=== PATIENT | male | born 1985 ===

== ENCOUNTER 2023-08-15 09:38 | Inpatient (IN) | payer OTHER ==
--- OUTSIDE RECORDS SUMMARY | 2023-08-15 09:43 | XMS REPORT | Continuity of Care Document ---
Author Name Unknown Address [address] [facility] [address] [place] [address] [facility] thconnect Address [address] [facility] [address] [place] [address] Care Team Providers Care Senior Database Programmer Name Role Phone [facility] Physician Jenelle Lo Attending Clinician Unavailable Elen Marley Attending Clinician Unavailable DEEDEE FIELD Attending Clinician UnavailDEEDEE Huddleston Attending Clinician UnavailVLAD Rees Attending Clinician UnavailVLAD Varma Attending Clinician UnavailGama Soliz Attending Clinician [phone] GAMA ACUÑA Attending Clinician Unavailable Michelle Erazo MD Attending Clinician [phone] Pob, [facility] Main Attending Clinician UnavailMICHELLE Cottrell Attending Clinician Unavailmartha shukla Doctor Unassigned, Sledge Attending Clinician U Deedee Wall MD Attending Clinician PHIL LITTLE Attending Clinician Unavailable GRAYSON SIMON Attending Clinician Unavail able Grayson Simon MD Attending Clinician Rylan Gonzales MD Attending Clinician [phone] Pcp-Lab Attending Clinician Unavailable RYLAN DANIELLE Attending Clinician Unavailable LILLIAN GRAY Attending Clinician Unavailab GRAYSON Reyna Admitting Clinician Unavail able Payers Payer Name Policy Type Policy Number Effective Date Expirati on Date Source [facility] [id number] 00:00:00 [facility] [id number] 2015 00:00:00 Problems Condition Name Condition Details Condition Category Status Onset Date Resolution Date Last Treatment Date Treating Clinician Comments Source ADHD (attention deficit hyperactiv ity disorder), combined type ADHD (attention deficit hyperactiv ity disorder), combined type Disease Active 11-05 00:00: 00 [facility] Bipolar I disorder, current or most recent episode depressed, in partial remission Bipolar I disorder, current or most recent episode depressed, in partial remission Disease Active 11-05 00:00: 00 [facility] Autism spectrum disorder Autism spectrum disorder Disease Active 11-05 00:00: 00 [facility] 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 current use of antipsycho tic medication Disease Active 11-05 00:00: 00 [facility] Elevated BP without diagnosis of hypertensi on Elevated BP without diagnosis of hypertensi on Problem Active [facility] Bipolar disorder Bipolar disorder Problem Active [facility] Seasonal allergies Seasonal allergies Problem Active [facility] Depression Depression Problem Active [facility] ADHD (attention deficit hyperactiv ity disorder) ADHD (attention deficit hyperactiv ity disorder) Diagnosis Active [facility] Snoring Snoring Problem Active [facility] Calcium oxalate crystals in urine Calcium oxalate crystals in urine Problem Active [facility] Hyperglyce krystyna Hyperglyce krystyna Problem Active [facility] Morbid obesity Morbid obesity Problem Active [facility] Shortness of breath Shortness of breath Problem Active [facility] Body mass index (BMI) 40.0-44.9, adult Body mass index (BMI) 40.0-44.9, adult Problem Active [facility] HDL deficiency HDL deficiency Diagnosis Active [facility] Hypertrigl yceridemia Hypertrigl yceridemia Diagnosis Active [facility] Chest tightness Chest tightness Problem Active [facility] Prediabete s Prediabete s Diagnosis Active [facility] Autism Autism Diagnosis Active [facility] Allergies, Adverse Reactions, Alerts Allergy Name Allergy Type Status Severity Reaction(s) Onset Date Inactive Date Treating Clinician Comments Source Lorat[place] ne Drug Allergy Active Hypertension 08-23 00:00: 00 Per patient chest pains [facility] [place]at[place] ne Propensi ty to adverse reaction s to drug Active Palpitations 08-23 00:00: 00 Per patient chest pains [facility] LORATADI NE DRUG INGREDI Active High Palpitations 08-23 00:00: 00 [facility] Claritin Adverse Reaction Active chest pain [facility] Social History Social Habit Start Date Stop Date Quantity Comments Source Gender identity [facility] Sexual orientation [facility] Alcohol intake 2023-06-14 00:00:00 2023-06-14 00:00:00 [facility] History of Social function 2023-06-14 00:00:00 2023-06-14 00:00:00 [facility] Exposure to SARS-CoV-2 (event) 2022-05-20 00:00:00 2022-05-30 10:14:00 Not sure [facility] Tobacco use and exposure 2013-06-24 00:00:00 2013-06-24 00:00:00 Smokeless tobacco non-user [facility] Sex Assigned At 1985 00:00:00 1985 00:00:00 [facility] Smoking Status Start Date Stop Date Source Never smoked tobacco [facility] Medications Ordered Medication Name Filled Medication Name Start Date Stop Date Current Medication? Ordering Clinician Indication Dosage Frequency Signature (SIG) Comments Components Source amphetamine -dextroamph etamine (ADDERALL XR) 25 mg 24 hr capsule 07-24 00:00: 00 Yes [id number] 50mg Take 2 capsules by mouth every morning. [facility] amphetamine -dextroamph etamine (ADDERALL XR) 25 mg 24 hr capsule 06-24 00:00: 00 Yes [id number] 50mg Take 2 capsules by mouth every morning. [facility] lurasidone 40 mg tablet 3 00:00: 00 Yes [id number] 40mg Take 1 tablet by mouth every morning. [facility] SERTraline 100 mg tablet 06-13 00:00: 00 Yes [id number] 150mg Take 1.5 tablets by mouth in the morning. [facility] amphetamine -dextroamph etamine (ADDERALL XR) 25 mg 24 hr capsule 05-22 00:00: 00 06-13 00:00 :00 No [id number] 50mg Take 2 capsules by mouth every morning. [facility] amphetamine -dextroamph etamine (ADDERALL XR) 25 mg 24 hr capsule 04-22 00:00: 00 05-22 00:00 :00 No [id number] 50mg Take 2 capsules by mouth every morning. [facility] amphetamine -dextroamph etamine (ADDERALL XR) 25 mg 24 hr capsule 2022-03 2- 00:00: 00 04-21 00:00 :00 No [id number] 50mg Take 2 capsules by mouth every morning. [facility] ampicillin 500 mg capsule 2022-03 2- 00:00: 00 Yes [facility] lurasidone 40 mg tablet 2022-03 2- 00:00: 00 06-13 00:00 :00 No [id number] 40mg Take 1 tablet by mouth every morning. [facility] SERTraline 100 mg tablet 2022-03 2- 00:00: 00 06-13 00:00 :00 No [id number] 150mg Take 1.5 tablets by mouth in the morning. [facility] losartan 25 mg tablet 2022-03 2- 00:00: 00 Yes [facility] amphetamine -dextroamph etamine (ADDERALL XR) 25 mg 24 hr capsule 2022-03 1- 00:00: 00 03-01 00:00 :00 No [id number] 50mg Take 2 capsules by mouth every morning. [facility] lurasidone 40 mg tablet 2022-03 0-31 00:00: 00 03-01 00:00 :00 No [id number] 40mg Take 1 tablet by mouth every morning. [facility] amphetamine -dextroamph etamine (ADDERALL XR) 25 mg 24 hr capsule 2022-03 0-31 00:00: 00 02-20 00:00 :00 No [id number] 50mg Take 2 capsules by mouth every morning. [facility] amphetamine -dextroamph etamine (ADDERALL XR) 25 mg 24 hr capsule 0 9-28 00:00: 00 01-24 00:00 :00 No [id number] 50mg Take 2 capsules by mouth every morning. [facility] SERTraline 100 mg tablet 9-06 00:00: 00 03-01 00:00 :00 No [id number] 150mg Take 1.5 tablets by mouth in the morning. [facility] lurasidone 40 mg tablet 9- 00:00: 00 01-24 00:00 :00 No [id number] 40mg Take 1 tablet by mouth every morning. [facility] amphetamine -dextroamph etamine (ADDERALL XR) 25 mg 24 hr capsule 8-30 00:00: 00 12-19 00:00 :00 No [id number] 50mg Take 2 capsules by mouth every morning. [facility] lurasidone 40 mg tablet 8-30 00:00: 00 11-30 00:00 :00 No [id number] 40mg Take 1 tablet by mouth every morning. [facility] SERTraline 100 mg tablet 0 8- 00:00: 00 11-30 00:00 :00 No [id number] 150mg Take 1.5 tablets by mouth in the morning. [facility] amphetamine -dextroamph etamine (ADDERALL XR) 25 mg 24 hr capsule 0 7-26 00:00: 00 11-23 00:00 :00 No [id number] 50mg Take 2 capsules by mouth every morning. [facility] amphetamine -dextroamph etamine (ADDERALL XR) 25 mg 24 hr capsule 2022-0 6-27 00:00: 00 10-19 00:00 :00 No [id number] 50mg Take 2 capsules by mouth every morning. [facility] lurasidone 40 mg tablet 0 6-05 00:00: 00 11-23 00:00 :00 No [id number] 40mg Take 1 tablet by mouth every morning. [facility] SERTraline 100 mg tablet 0 6-05 00:00: 00 10-25 00:00 :00 No [id number] 150mg Take 1.5 tablets by mouth in the morning. [facility] amphetamine -dextroamph etamine (ADDERALL XR) 25 mg 24 hr capsule 0 5-22 00:00: 00 08-29 00:00 :00 No [id number] 50mg Take 2 capsules by mouth every morning. [facility] amphetamine -dextroamph etamine (ADDERALL XR) 25 mg 24 hr capsule 2022-0 4-24 00:00: 00 08-15 00:00 :00 No [id number] 50mg Take 2 capsules by mouth every morning. [facility] amphetamine -dextroamph etamine 25 mg 24 hr capsule 2022-0 3-23 00:00: 00 07-18 00:00 :00 No [id number] 50mg Take 2 capsules by mouth in the morning. [facility] ADDERALL XR 25 mg 24 hr capsule 2022-0 3-23 00:00: 00 07-18 00:00 :00 No [id number] 50mg Take 2 capsules by mouth every morning. [facility] lurasidone 40 mg tablet 2022-0 3-06 00:00: 00 08-29 00:00 :00 No [id number] 40mg Take 1 tablet by mouth every morning. [facility] SERTraline 100 mg tablet 2022-0 3-06 00:00: 00 08-29 00:00 :00 No [id number] 150mg Take 1.5 tablets by mouth in the morning. [facility] amphetamine -dextroamph etamine 25 mg 24 hr capsule 3-06 00:00: 00 06-16 00:00 :00 No [id number] 50mg Take 2 capsules by mouth in the morning. [facility] amphetamine -dextroamph etamine 25 mg 24 hr capsule 2-15 00:00: 00 05-30 00:00 :00 No [id number] 50mg Take 2 capsules by mouth in the morning. [facility] amphetamine -dextroamph etamine 25 mg 24 hr capsule 1-18 00:00: 00 05-11 00:00 :00 No [id number] 50mg Take 2 capsules by mouth in the morning. [facility] amphetamine -dextroamph etamine 25 mg 24 hr capsule 2021-03 2-15 00:00: 00 04-13 00:00 :00 No [id number] 50mg Take 2 capsules by mouth in the morning. [facility] amphetamine -dextroamph etamine 25 mg 24 hr capsule 2021-03 1- 00:00: 00 03-09 00:00 :00 No [id number] 50mg Take 2 capsules by mouth in the morning. [facility] metFORMIN 500 mg tablet 2021-03 10:32: 57 Yes 500mg Take 500 mg by mouth in the morning and 500 mg in the evening. Take with meals. [facility] lurasidone 40 mg tablet 2021-03 00:00: 00 05-30 00:00 :00 No [id number] 40mg Take 1 tablet by mouth every morning. [facility] SERTraline 100 mg tablet 2021-03 00:00: 00 05-30 00:00 :00 No [id number] 150mg Take 1.5 tablets by mouth in the morning. [facility] amphetamine -dextroamph etamine 25 mg 24 hr capsule 2021-03 0-14 00:00: 00 02-02 00:00 :00 No [id number] 50mg Take 2 capsules by mouth in the morning. [facility] amphetamine -dextroamph etamine 25 mg 24 hr capsule 9-16 00:00: 00 01-07 00:00 :00 No [id number] 50mg Take 2 capsules by mouth in the morning. [facility] amphetamine -dextroamph etamine 25 mg 24 hr capsule -15 00:00: 00 12-10 00:00 :00 No [id number] 50mg Take 2 capsules by mouth in the morning. [facility] lurasidone 40 mg tablet 10-27 00:00: 00 02-02 00:00 :00 No [id number] 40mg Take 1 tablet by mouth every morning. [facility] SERTraline 100 mg tablet 10-27 00:00: 00 02-02 00:00 :00 No [id number] 150mg Take 1.5 tablets by mouth in the morning. [facility] Adderall XR Adderall XR Yes Elen Millender 2 capsules in the morning [facility] Latuda Latuda Yes Elen Millender 1 tablet [facility] Zoloft Zoloft Yes Elen Millender 1 tablet [facility] Vital Signs Vital Name Observation Time Observation Value Comments S ource Systolic blood pressure 2023-05-09 15:39:00 120 mm[Hg] [facility] Diastolic blood pressure 2023-05-09 15:39:00 73 mm[Hg] [facility] Heart rate 2023-05-09 15:39:00 88 /min [facility] Body temperature 2023-05-09 15:39:00 36.11 Josefa [facility] Respiratory rate 2023-05-09 15:39:00 19 /min [facility] Body height 2023-05-09 15:39:00 188 cm [facility] Body weight 2023-05-09 15:39:00 156.945 kg [facility] BMI 2023-05-09 15:39:00 44.42 kg/m2 [facility] Oxygen saturation in Arterial blood by Pulse oximetry 2023-05-09 15:39:00 97 /min [facility] Systolic blood pressure 2023-03-15 16:21:00 128 mm[Hg] [facility] Diastolic blood pressure 2023-03-15 16:21:00 78 mm[Hg] [facility] Heart rate 2023-03-15 16:21:00 99 /min Un[facility] Body temperature 2023-03-15 16:21:00 35.72 Josefa [facility] Respiratory rate 2023-03-15 16:21:00 16 /min [facility] Body height 2023-03-15 16:21:00 188 cm [facility] Body weight 2023-03-15 16:21:00 157.625 kg [facility] BMI 2023-03-15 16:21:00 44.62 kg/m2 [facility] Oxygen saturation in Arterial blood by Pulse oximetry 2023-03-15 16:21:00 97 /min [facility] Systolic blood pressure 2023-06-14 15:24:00 121 mm[Hg] [facility] Diastolic blood pressure 2023-06-14 15:24:00 69 mm[Hg] [facility] Heart rate 2023-06-14 15:24:00 100 /min [facility] Respiratory rate 2023-06-14 15:24:00 18 /min [facility] Body height 2023-06-14 15:24:00 188 cm [facility] Body weight 2023-06-14 15:24:00 155.856 kg [facility] BMI 2023-06-14 15:24:00 44.12 kg/m2 [facility] Systolic blood pressure 2023-05-09 15:39:00 120 mm[Hg] [facility] Diastolic blood pressure 2023-05-09 15:39:00 73 mm[Hg] [facility] Heart rate 2023-05-09 15:39:00 88 /min [facility] Body temperature 2023-05-09 15:39:00 36.11 Josefa [facility] Respiratory rate 2023-05-09 15:39:00 19 /min [facility] Body height 2023-05-09 15:39:00 188 cm [facility] Body weight 2023-05-09 15:39:00 156.945 kg [facility] BMI 2023-05-09 15:39:00 44.42 kg/m2 [facility] Oxygen saturation in Arterial blood by Pulse oximetry 2023-05-09 15:39:00 97 /min [facility] Systolic blood pressure 2023-03-15 16:21:00 128 mm[Hg] [facility] Diastolic blood pressure 2023-03-15 16:21:00 78 mm[Hg] [facility] Heart rate 2023-03-15 16:21:00 99 /min [facility] Body temperature 2023-03-15 16:21:00 35.72 Josefa [facility] Respiratory rate 2023-03-15 16:21:00 16 /min [facility] Body height 2023-03-15 16:21:00 188 cm [facility] Body weight 2023-03-15 16:21:00 157.625 kg [facility] BMI 2023-03-15 16:21:00 44.62 kg/m2 [facility] Oxygen saturation in Arterial blood by Pulse oximetry 2023-03-15 16:21:00 97 /min [facility] Systolic blood pressure 2023-03-01 15:52:00 120 mm[Hg] [facility] Diastolic blood pressure 2023-03-01 15:52:00 80 mm[Hg] [facility] Heart rate 2023-03-01 15:52:00 98 /min [facility] Respiratory rate 2023-03-01 15:52:00 18 /min [facility] Body height 2023-03-01 15:52:00 188 cm [facility] Body weight 2023-03-01 15:52:00 156.446 kg [facility] BMI 2023-03-01 15:52:00 44.28 kg/m2 [facility] Systolic blood pressure 2022-11-30 15:32:00 134 mm[Hg] [facility] Diastolic blood pressure 2022-11-30 15:32:00 88 mm[Hg] [facility] Heart rate 2022-11-30 15:32:00 82 /[facility] 2022-[facility]-30 15:27:00 18 /min [facility] Body height 2022-11-30 15:27:00 188 cm [facility] 2022-11-30 15:27:00 158.759 kg [facility] BMI 2022-11-30 15:27:00 44.94 kg/m2 [facility] Systolic blood pressure 2022-08-29 14:38:00 139 mm[Hg] [facility] Diastolic blood pressure 2022-08-29 14:38:00 85 mm[Hg] [facility] Heart rate 2022-08-29 14:38:00 79 /min [facility] Respiratory rate 2022-08-29 14:38:00 18 /min [facility] Body height 2022-08-29 14:38:00 188 cm [facility] Body weight 2022-08-29 14:38:00 163.295 kg [facility] BMI 2022-08-29 14:38:00 46.22 kg/m2 [facility] Systolic blood pressure 2022-05-30 16:18:00 134 mm[Hg] [facility] Diastolic blood pressure 2022-05-30 16:18:00 81 mm[Hg] [facility] Heart rate 2022-05-30 16:18:00 78 /min [facility] Respiratory rate 2022-05-30 16:18:00 18 /min [facility] Body height 2022-05-30 16:18:00 182.9 cm [facility] Body weight 2022-05-30 16:18:00 156.037 kg [facility] BMI 2022-05-30 16:18:00 46.65 kg/m2 [facility] Systolic blood pressure 2022-02-02 15:57:00 150 mm[Hg] [facility] Diastolic blood pressure 2022-02-02 15:57:00 96 mm[Hg] [facility] Heart rate 2022-02-02 15:50:00 81 /min [facility] Respiratory rate 2022-02-02 15:50:00 18 /min [facility] Body height 2022-02-02 15:50:00 182.9 cm [facility] Body weight 2022-02-02 15:50:00 152.862 kg [facility] BMI 2022-02-02 15:50:00 45.71 kg/m2 [facility] Systolic blood pressure 2021-10-27 14:48:00 139 mm[Hg] [facility] Diastolic blood pressure 2021-10-27 14:48:00 85 mm[Hg] [facility] Heart rate 2021-10-27 14:48:00 82 /min [facility] Respiratory rate 2021-10-27 14:48:00 18 /min [facility] Body height 2021-10-27 14:48:00 182.9 cm [facility] Body weight 2021-10-27 14:48:00 154.45 kg [facility] BMI 2021-10-27 14:48:00 46.18 kg/m2 [facility] Procedures Procedure Date / Time Performed Performing Clinician Source CBC WITH DIFF 2023-04-07 15:59:00 Kody Olmos [facility] LIPID PANEL ([id number])(TOTAL CHOLESTEROL, TRIGLYCERIDES, HDL) 2023-04-07 [facility]:59[facility] 2023-04-07 15:59[facility] GLYCOSYLATED HEMOGLOBIN (A1C) 2023-04-07 15:59[facility] HE[facility] ([id number]) (ALB,T.PRO,BILI T,BU/BC,ALT,AST,ALK PHOS) 2023-04-07 15:59[facility] NOTICE OF PRIVACY PRACTICES 2023-04-07 15:33:35 Doctor Unassigned, Sledge [facility] CONSENT/REFUSAL FOR DIAGNOSIS AND TREATMENT 2023-04-07 15:33:14 Doctor Unassigned, Sledge [facility] ASSIGNMENT OF BENEFITS 2023-04-07 15:32:51 Docto r Unassigned, Sledge [facility] ASSIGNMENT OF BENEFITS 2023-04-07 15:32:51 Docto r Unassigned, Sledge [facility] SLEEP STUDY DATA REPORT 2023-04-06 06:01:00 Doct or Unassigned, Sledge [facility] SLEEP LAB RESULTS 2023-04-06 06:01:00 Gama Acuña [facility] PATIENT FINANCIAL POLICY 2022-08-29 15:03:26 Doctor Unassigned, Sledge [facility] CONSENT/REFUSAL FOR DIAGNOSIS AND TREATMENT 2022-08-29 14:20:41 Doctor Unassigned, Sledge [facility] ASSIGNMENT OF BENEFITS 2022-08-29 14:20:17 Docto r Unassigned, Sledge [facility] ASSIGNMENT OF BENEFITS 2022-08-29 14:20:17 Docto r Unassigned, Sledge [facility] EXTERNAL PROVIDER RECORDS 2022-06-03 06:01:00 Doctor Unassigned, Sledge [facility] CONSENT TO TREATMENT WITH PSYCHOACTIVE MEDICATION 2022-05-30 06:01:00 Doctor Unassigned, Sledge [facility] CONSENT TO TREATMENT WITH PSYCHOACTIVE MEDICATION 2022-05-30 06:01:00 Doctor Unassigned, Sledge [facility] Encounters Start Date/Time End Date/Time Encounter Type Admission Type Attending [facility] Facility Care Department Encounter ID Source 2023-04-17 10:59:[address] [facility] [id number] [facility] 2022-12-27 08:36:[address] [facility] [id number] [facility] 2022-05-24 08:59:[address] [facility] [id number] [facility] 2022-05-23 11:21:00 Outpatient Jenelle Lo [facility] [id number] [facility] 2022-02-16 11:36:01 Outpatient Jenelle Lo [facility] [id number] [facility] 2021-11-16 14:19:00 Outpatient Jenelle Lo [facility] [id number] [facility] 2021-09-16 08:52:00 Outpatient Jenelle Lo [facility] [id number] [facility] 2021-08-24 13:12:00 Outpatient Jenelle Lo [facility] [id number] [facility] 2021-08-17 15:44:01 Outpatient Jenelle Lo [facility] [id number] [facility] 2021-07-26 10:21:02 Outpatient Jenelle Lo [facility] [id number] [facility] 2021-07-22 12:32:00 Outpatient Jenelle Lo [facility] [id number] [facility] 2021-06-07 11:17:01 Outpatient Jenelle Lo [facility] [id number] [facility] 2021-04-21 11:46:45 Outpatient Elen Marley [facility] [id number] [facility] 2023-09-06 11:00:00 2023-09-06 11:00:[address] [facility] [id number] [facility] 2023-06-14 11:00:00 2023-06-14 11:23:11 Outpatient VLAD MARR KIMBERLY [facility] [id number] [facility] 2023-06-14 00:00:00 2023-06-14 00:00:00 Travel [id number] [facility] 2023-05-17 00:00:00 2023-05-17 00:00:00 Telephone Gama Acuña [id number] [facility] 2023-05-09 10:00:00 2023-05-09 10:30:00 Office Visit Gama Acuña [id number] [facility] 2023-05-09 10:00:00 2023-05-09 10:00:00 Outpatient R GAMA ACUÑA [facility] [id number] [facility] 2023-05-09 00:00:00 2023-05-09 00:00:00 Travel 1.2.840.1 22261.1.1 3.104.2.7 .3.160255 .8 1.2.840.114 350.1.13.10 4.2.7.3.698 084.8 [id number] [facility] 2023-04-21 00:00:00 2023-04-21 00:00:00 Telephone ArianneaGma 1.2.840.1 19828.1.1 3.104.2.7 .3.336319 .8 [id number] [facility] 2023-04-07 11:15:00 2023-04-07 11:30:00 Branch Customer Service Representative Visit Michelle Erazo, [facility] Lab Main 1.2.840.1 26667.1.1 3.104.2.7 .3.884927 .8 [id number] [facility] 2023-04-07 11:15:00 2023-04-07 11:15:[address] [facility] [id number] [facility] 2023-04-07 00:00:00 2023-04-07 00:00:00 Orders Only Doctor Unassigned, [place] 1.2.840.1 76820.1.1 3.104.2.7 .3.840847 .8 [id number] [facility] 2023-04-06 10:30:00 2023-04-06 10:45:00 Branch Customer Service Representative Visit Deedee Field 1.2.840.1 66918.1.1 3.104.2.7 .3.828018 .8 [id number] [facility] 2023-04-06 10:30:00 2023-04-06 10:30:00 Outpatient DEEDEE WOODS STRAHIL [facility] [id number] [facility] 2023-04-06 00:00:00 2023-04-06 00:00:00 Travel 1.2.840.1 11424.1.1 3.104.2.7 .3.902885 .8 1.2.840.114 350.1.13.10 4.2.7.3.698 084.8 [id number] [facility] 2023-03-15 11:00:00 2023-03-15 11:30:00 Office Visit Gama Acuña 1.2.840.1 80837.1.1 3.104.2.7 .3.414075 .8 [id number] [facility] 2023-03-15 11:00:00 2023-03-15 11:00:[address] [facility] [id number] [facility] 2023-03-15 00:00:00 2023-03-15 00:00:00 Travel 1.2.840.1 05898.1.1 3.104.2.7 .3.810010 .8 1.2.840.114 350.1.13.10 4.2.7.3.698 084.8 [id number] [facility] 2023-03-01 10:15:00 2023-03-01 10:43:51 Outpatient R SELF, PHIL [facility] [id number] [facility] 2023-03-01 00:00:00 2023-03-01 00:00:00 Travel 1.2.840.1 68351.1.1 3.104.2.7 .3.985140 .8 1.2.840.114 350.1.13.10 4.2.7.3.698 084.8 [id number] [facility] 2023-02-27 00:00:00 2023-02-27 00:00:00 Travel 1.2.840.1 02371.1.1 3.104.2.7 .3.309886 .8 1.2.840.114 350.1.13.10 4.2.7.3.698 084.8 [id number] [facility] 2022-11-30 11:00:00 2022-11-30 11:13:14 Outpatient R SELF, [facility] [id number] [facility] 2022-11-30 00:00:00 2022-11-30 00:00:00 Travel 1.2.840.1 51138.1.1 3.104.2.7 .3.372833 .8 1.2.840.114 350.1.13.10 4.2.7.3.698 084.8 [id number] [facility] 2022-08-29 09:30:00 2022-08-29 12:09:28 Outpatient R SELF, [facility] [id number] [facility] 2022-08-29 00:00:00 2022-08-29 00:00:00 Orders Only Doctor Unassigned, [place] 1.2.840.1 94882.1.1 3.104.2.7 .3.797600 .8 [id number] [facility] 2022-08-29 00:00:00 2022-08-29 00:00:00 Travel 1.2.840.1 24152.1.1 3.104.2.7 .3.803021 .8 1.2.840.114 350.1.13.10 4.2.7.3.698 084.8 [id number] [facility] 2022-05-30 11:00:00 2022-05-30 11:03:42 Outpatient R [address]IL [facility] [id number] [facility] 2022-05-30 00:00:00 2022-05-30 00:00:00 Travel 1.2.840.1 24436.1.1 3.104.2.7 .3.557194 .8 1.2.840.114 350.1.13.10 4.2.7.3.698 084.8 [id number] [facility] 2022-05-30 00:00:00 2022-05-30 00:00:00 Orders Only Doctor Unassigned, [place] 1.2.840.1 55820.1.1 3.104.2.7 .3.783345 .8 [id number] [facility] 2022-02-02 10:15:00 2022-02-02 10:37:22 Outpatient R VLAD GREY KIMBER[facility] [id number] [facility] 2022-02-02 00:00:00 2022-02-02 00:00:00 Travel 1.2.840.1 32521.1.1 3.104.2.7 .3.990996 .8 1.2.840.114 350.1.13.10 4.2.7.3.698 084.8 [id number] [facility] 2021-10-27 10:15:00 2021-10-27 11:24:[address] [facility] [id number] [facility] 2021-10-27 00:00:00 2021-10-27 00:00:00 Travel 1.2.840.1 30354.1.1 3.104.2.7 .3.043613 .8 1.2.840.114 350.1.13.10 4.2.7.3.698 084.8 [id number] [facility] 2021-07-14 10:15:00 2021-07-14 11:19:13 Outpatient [address] MARR [facility] [facility] [id number] [facility] 2021-07-14 10:15:00 2021-07-14 10:15:00 Outpatient VLAD [facility] [id number] [facility] 2021-07-14 00:00:00 2021-07-14 00:00:00 Travel 1.2.840.1 61308.1.1 3.104.2.7 .3.397099 .8 1.2.840.114 350.1.13.10 4.2.7.3.698 084.8 [id number] [facility] 2021-06-02 10:15:00 2021-06-02 10:53:00 Outpatient VL[address] MARR [facility] [facility] [id number] [facility] 2021-06-02 00:00:00 2021-06-02 00:00:00 Travel 1.2.840.1 88820.1.1 3.104.2.7 .3.416844 .8 1.2.840.114 350.1.13.10 4.2.7.3.698 084.8 [id number] [facility] 2021-03-11 10:54:20 2021-03-11 23:59:[address] [facility] [id number] [facility] 2021-03-11 10:54:20 2021-03-11 23:59:[address] [facility] [id number] [facility] 2021-03-11 10:00:00 2021-03-11 23:59:00 Hospital Encounter Grayson Simon 1.2.840.1 28981.1.1 3.104.2.7 .3.713582 .8 [id number] [facility] 2021-03-11 00:00:00 2021-03-11 00:00:00 Abstract Grayson Simon 1.2.840.1 75269.1.1 3.104.2.7 .3.282009 .8 [id number] [facility] 2021-03-03 11:15:00 2021-03-03 11:30:00 Branch Customer Service Representative Visit Rylan Danielle [facility] 1.2.840.1 57317.1.1 3.104.2.7 .3.083772 .8 [id number] [facility] 2021-03-03 11:15:00 2021-03-03 11:15:[address] [facility] [id number] [facility] 2021-03-03 11:15:00 2021-03-03 11:15:[address] [facility] [id number] [facility] 2021-03-03 09:30:00 2021-03-03 10:41:[address] [facility] [id number] [facility] 2021-03-03 09:30:00 2021-03-03 09:30:[address] [facility] [id number] [facility] 2021-03-03 00:00:00 2021-03-03 00:00:00 Travel 1.2.840.1 40570.1.1 3.104.2.7 .3.999339 .8 1.2.840.114 350.1.13.10 4.2.7.3.698 084.8 [id number] [facility] 2021-03-03 00:00:00 2021-03-03 00:00:00 Orders Only Doctor Unassigned, [place] 1.2.840.1 39836.1.1 3.104.2.7 .3.378629 .8 [id number] [facility] 2020-10-28 11:00:00 2020-10-28 11:00:[address] [facility] [id number] [facility] 2020-10-28 00:00:00 2020-10-28 00:00:00 Travel 1.2.840.1 10793.1.1 3.104.2.7 .3.937600 .8 1.2.840.114 350.1.13.10 4.2.7.3.698 084.8 [id number] [facility] 2020-05-13 11:00:00 2020-05-13 11:00:[address] [facility] [id number] [facility] 2019-12-12 08:00:00 2019-12-12 08:00:00 Outpatient [facility] [place] [facility] [id number] [facility] 2019-11-06 08:00:00 2019-11-06 08:00:[address] [facility] [id number] [facility] 2019-10-14 09:30:00 2019-10-14 09:30:[address] [facility] [id number] [facility] 2019-09-18 10:15:00 2019-09-18 10:15:[address] [facility] [id number] [facility] 2019-09-02 07:57:00 2019-09-02 07:57:00 [place] [facility] [address] [facility] [id number] [facility] 2019-08-27 13:00:00 2019-08-27 13:00:00 [place] [place] [address] [facility] [id number] [facility] 2019-08-26 10:15:00 2019-08-26 10:15:[address] [facility] [id number] [facility] 2019-04-03 10:30:00 2019-04-03 10:30:00 Out[facility] [facility] [address] [facility] [id number] [facility] 2018-12-31 09:40:00 2018-12-31 09:40:00 Outpatient [place] [address] [facility] [id number] [facility] 2018-10-30 10:41:00 2018-10-30 10:41:00 Outpatient [place] [address] [facility] [id number] [facility] 2018-10-03 14:00:00 2018-10-03 14:00:00 Outpatient [place] [facility] [id number] [facility] Results Test Description Test Time Test Comments Results Result Co m[facility] [id number] 17:39:14 * Test Item Value Reference Range Interpretation Comme nts TSH (test code = 2635118342) 2.41 0.45-4.70 Lab Interpretation (test cod e = 83864-8) Normal [facility] [id number] 17:39:14 * Test Item Value Reference Range Interpretation Comme nts TSH (test code = 2828747623) 2.41 0.45-4.70 Lab Interpretation (test cod e = 15624-7) Normal [facility] [id number] 17:39:14 * Test Item Value Reference Range Interpretation Comme nts TSH (test code = 8312364178) 2.41 0.45-4.70 Lab Interpretation (test cod e = 80719-0) [facility] [id number] 17:39:14 * Test Item Value Reference Range Interpretation Comme nts TSH (test code = 2598278363) 2.41 0.45-4.70 Lab Interpretation (test cod e = 82143-3) Normal [facility] [id number] 17:39:14 * Test Item Value Reference Range Interpretation Comme nts TSH (test code = 5987418237) 2.41 0.45-4.70 Lab Interpretation (test cod e = 78866-8) [facility] [id number] 17:39:14 * Test Item Value Reference Range Interpretation Comme nts TSH (test code = 5511984503) 2.41 0.45-4.70 Lab Interpretation (test cod e = 85637-1) [facility] (13841) (ALB,T.PRO,BILI T,BU/BC,ALT,AST,ALK PHOS)2023-04-07 17:08:28* Test Item Value Reference Range Interpretation Comme nts TOTAL BILI (test code = 2914264045) 0.4 mg/dL 0.1-1.1 BILI UNCON (test code = 6601648641) 0.1 mg/dL 0.1-1.1 BILI CONJ (test code = 1817951873) 0.0 mg/dL 0.0-0.3 T PROTEIN (test code = 5066703558) 8.6 g/dL 6.3-8.2 H ALBUMIN (test code = 9562615378) 4.0 g/dL 3.5-5.0 ALK PHOS (test code = 6456679465) 66 U/L 34-122 ALTv (test code = 1742-6) 14 U/L 5-50 AST(SGOT) (test code = 4743397442) 16 U/L 13-40 Lab Interpretation (test cod e = 78592-9) Abnormal [facility] (07154)(TOTAL CHOLESTEROL, TRIGLYCERIDES, HDL)2023-04-07 17:08:28* Test Item Value Reference Range Interpretation Comme nts CHOL (test code = 3915134226) 157 mg/dL 120-200 HDL (test code = 3511095930) 35 mg/dL >=40 L HDLC RATIO (test code = 2267473591) 4.5 <=5.0 TRIG (test code = 5133434860) 268 mg/dL 30-170 H LDL CHOL (test code = 58176-7) 68 mg/dL <=160 VLDL (test code = 4916330981) 54 mg/dL 5-60 Lab Interpretation (test cod e = 71001-2) [facility]normal [facility] (04061) (ALB,T.PRO,BILI T,BU/BC,ALT,AST,ALK PHOS)2023-04-07 17:08:28* Test Item Value Reference Range Interpretation Comme nts TOTAL BILI (test code = 1104843869) 0.4 mg/dL 0.1-1.1 BILI UNCON (test code = 7267286643) 0.1 mg/dL 0.1-1.1 BILI CONJ (test code = 0561805204) 0.0 mg/dL 0.0-0.3 T PROTEIN (test code = 4414584813) 8.6 g/dL 6.3-8.2 H ALBUMIN (test code = 1827514768) 4.0 g/dL 3.5-5.0 ALK PHOS (test code = 5827025676) 66 U/L 34-122 ALTv (test code = 1742-6) 14 U/L 5-50 AST(SGOT) (test code = 2019832621) 16 U/L 13-40 Lab Interpretation (test cod e = 85338-2) [facility]normal [facility] (59297)(TOTAL CHOLESTEROL, TRIGLYCERIDES, HDL)2023-04-07 17:08:28* Test Item Value Reference Range Interpretation Comme nts CHOL (test code = 1767943662) 157 mg/dL 120-200 HDL (test code = 7912763936) 35 mg/dL >=40 L HDLC RATIO (test code = 9504013689) 4.5 <=5.0 TRIG (test code = 3560991103) 268 mg/dL 30-170 H LDL CHOL (test code = 85005-4) 68 mg/dL <=160 VLDL (test code = 6035906101) 54 mg/dL 5-60 Lab Interpretation (test cod e = 07852-7) Abnormal [facility] (55843) (ALB,T.PRO,BILI T,BU/BC,ALT,AST,ALK PHOS)2023-04-07 17:08:28* Test Item Value Reference Range Interpretation Comme nts TOTAL BILI (test code = 4421019889) 0.4 mg/dL 0.1-1.1 BILI UNCON (test code = 0708671279) 0.1 mg/dL 0.1-1.1 BILI CONJ (test code = 6195854368) 0.0 mg/dL 0.0-0.3 T PROTEIN (test code = 0492762908) 8.6 g/dL 6.3-8.2 H ALBUMIN (test code = 0546301017) 4.0 g/dL 3.5-5.0 ALK PHOS (test code = 2363897834) 66 U/L 34-122 ALTv (test code = 1742-6) 14 U/L 5-50 AST(SGOT) (test code = 7780598456) 16 U/L 13-40 Lab Interpretation (test cod e = 01665-4) [facility] (91282)(TOTAL CHOLESTEROL, TRIGLYCERIDES, HDL)2023-04-07 17:08:28* Test Item Value Reference Range Interpretation Comme nts CHOL (test code = 8629046831) 157 mg/dL 120-200 HDL (test code = 8690915165) 35 mg/dL >=40 L HDLC RATIO (test code = 4051579617) 4.5 <=5.0 TRIG (test code = 3550882845) 268 mg/dL 30-170 H LDL CHOL (test code = 81670-8) 68 mg/dL <=160 VLDL (test code = 7759307100) 54 mg/dL 5-60 Lab Interpretation (test cod e = 57969-9) [facility]normal [facility] (27363) (ALB,T.PRO,BILI T,BU/BC,ALT,AST,ALK PHOS)2023-04-07 17:08:28* Test Item Value Reference Range Interpretation Comme nts TOTAL BILI (test code = 2606456153) 0.4 mg/dL 0.1-1.1 BILI UNCON (test code = 3278352833) 0.1 mg/dL 0.1-1.1 BILI CONJ (test code = 4334946086) 0.0 mg/dL 0.0-0.3 T PROTEIN (test code = 9267068389) 8.6 g/dL 6.3-8.2 H ALBUMIN (test code = 5885855516) 4.0 g/dL 3.5-5.0 ALK PHOS (test code = 5366876014) 66 U/L 34-122 ALTv (test code = 1742-6) 14 U/L 5-50 AST(SGOT) (test code = 8173720506) 16 U/L 13-40 Lab Interpretation (test cod e = 50652-3) [facility]normal [facility] (30159)(TOTAL CHOLESTEROL, TRIGLYCERIDES, HDL)2023-04-07 17:08:28* Test Item Value Reference Range Interpretation Comme nts CHOL (test code = 8763094108) 157 mg/dL 120-200 HDL (test code = 9614074591) 35 mg/dL >=40 L HDLC RATIO (test code = 2867908296) 4.5 <=5.0 TRIG (test code = 4531754219) 268 mg/dL 30-170 H LDL CHOL (test code = 85678-2) 68 mg/dL <=160 VLDL (test code = 1831853696) 54 mg/dL 5-60 Lab Interpretation (test cod e = 95829-2) [facility] (01343) (ALB,T.PRO,BILI T,BU/BC,ALT,AST,ALK PHOS)2023-04-07 17:08:28* Test Item Value Reference Range Interpretation Comme nts TOTAL BILI (test code = 4239084463) 0.4 mg/dL 0.1-1.1 BILI UNCON (test code = 5626300170) 0.1 mg/dL 0.1-1.1 BILI CONJ (test code = 4250977198) 0.0 mg/dL 0.0-0.3 T PROTEIN (test code = 8280601708) 8.6 g/dL 6.3-8.2 H ALBUMIN (test code = 5511248057) 4.0 g/dL 3.5-5.0 ALK PHOS (test code = 7618483039) 66 U/L 34-122 ALTv (test code = 1742-6) 14 U/L 5-50 AST(SGOT) (test code = 9601945892) 16 U/L 13-40 Lab Interpretation (test cod e = 14081-4) [facility] (88876)(TOTAL CHOLESTEROL, TRIGLYCERIDES, HDL)2023-04-07 17:08:28* Test Item Value Reference Range Interpretation Comme nts CHOL (test code = 1273464218) 157 mg/dL 120-200 HDL (test code = 1137182733) 35 mg/dL >=40 L HDLC RATIO (test code = 0552759785) 4.5 <=5.0 TRIG (test code = 5562629033) 268 mg/dL 30-170 H LDL CHOL (test code = 81379-1) 68 mg/dL <=160 VLDL (test code = 1175940139) 54 mg/dL 5-60 Lab Interpretation (test cod e = 52418-5) [facility] (15643) (ALB,T.PRO,BILI T,BU/BC,ALT,AST,ALK PHOS)2023-04-07 17:08:28* Test Item Value Reference Range Interpretation Comme nts TOTAL BILI (test code = 7576292833) 0.4 mg/dL 0.1-1.1 BILI UNCON (test code = 4490602569) 0.1 mg/dL 0.1-1.1 BILI CONJ (test code = 1336250693) 0.0 mg/dL 0.0-0.3 T PROTEIN (test code = 8102155731) 8.6 g/dL 6.3-8.2 H ALBUMIN (test code = 3841979481) 4.0 g/dL 3.5-5.0 ALK PHOS (test code = 1424153339) 66 U/L 34-122 ALTv (test code = 1742-6) 14 U/L 5-50 AST(SGOT) (test code = 5006931015) 16 U/L 13-40 Lab Interpretation (test cod e = 52045-0) [facility]normal [facility] (42603)(TOTAL CHOLESTEROL, TRIGLYCERIDES, HDL)2023-04-07 17:08:28* Test Item Value Reference Range Interpretation Comme nts CHOL (test code = 7509397335) 157 mg/dL 120-200 HDL (test code = 5064191086) 35 mg/dL >=40 L HDLC RATIO (test code = 7259373834) 4.5 <=5.0 TRIG (test code = 7520284183) 268 mg/dL 30-170 H LDL CHOL (test code = 20172-7) 68 mg/dL <=160 VLDL (test code = 8263579511) 54 mg/dL 5-60 Lab Interpretation (test cod e = 40415-4) [facility] (22083) (ALB,T.PRO,BILI T,BU/BC,ALT,AST,ALK PHOS)2023-04-07 17:08:28* Test Item Value Reference Range Interpretation Comme nts TOTAL BILI (test code = 8904860721) 0.4 mg/dL 0.1-1.1 BILI UNCON (test code = 6678483863) 0.1 mg/dL 0.1-1.1 BILI CONJ (test code = 7959180011) 0.0 mg/dL 0.0-0.3 T PROTEIN (test code = 0085326533) 8.6 g/dL 6.3-8.2 H ALBUMIN (test code = 0847949844) 4.0 g/dL 3.5-5.0 ALK PHOS (test code = 5458246284) 66 U/L 34-122 ALTv (test code = 1742-6) 14 U/L 5-50 AST(SGOT) (test code = 1580043464) 16 U/L 13-40 Lab Interpretation (test cod e = 51618-1) [facility] (15839)(TOTAL CHOLESTEROL, TRIGLYCERIDES, HDL)2023-04-07 17:08:28* Test Item Value Reference Range Interpretation Comme nts CHOL (test code = 2749105271) 157 mg/dL 120-200 HDL (test code = 4555295347) 35 mg/dL >=40 L HDLC RATIO (test code = 4034945683) 4.5 <=5.0 TRIG (test code = 8603467867) 268 mg/dL 30-170 H LDL CHOL (test code = 71923-9) 68 mg/dL <=160 VLDL (test code = 8761816470) 54 mg/dL 5-60 Lab Interpretation (test cod e = 84838-1) [facility]C)2023-04-07 16:39:49* Test Item Value Reference Range Interpretation Comme nts HGB A1C (test code = 4548-4) 6.8 % 4.0-5.7 H CHANCE (test code = CHANCE) Reference RangesNormal: <5.7%Prediabetes: 5.7 - 6.4%Diabetes: > 6.5% Lab Interpretation (test code = 06407-7) [facility]normal [facility]C)2023-04-07 16:39:49* Test Item Value Reference Range Interpretation Comme nts HGB A1C (test code = 4548-4) 6.8 % 4.0-5.7 H CHANCE (test code = CHANCE) Reference RangesNormal: <5.7%Prediabetes: 5.7 - 6.4%Diabetes: > 6.5% Lab Interpretation (test code = 88933-3) [facility]normal [facility]C)2023-04-07 16:39:49* Test Item Value Reference Range Interpretation Comme nts HGB A1C (test code = 4548-4) 6.8 % 4.0-5.7 H CHANCE (test code = CHANCE) Reference RangesNormal: <5.7%Prediabetes: 5.7 - 6.4%Diabetes: > 6.5% Lab Interpretation (test code = 97338-3) [facility]normal [facility]C)2023-04-07 16:39:49* Test Item Value Reference Range Interpretation Comme nts HGB A1C (test code = 4548-4) 6.8 % 4.0-5.7 H CHANCE (test code = CHANCE) Reference RangesNormal: <5.7%Prediabetes: 5.7 - 6.4%Diabetes: > 6.5% Lab Interpretation (test code = 42963-5) [facility]normal [facility]C)2023-04-07 16:39:49* Test Item Value Reference Range Interpretation Comme nts HGB A1C (test code = 4548-4) 6.8 % 4.0-5.7 H CHANCE (test code = CHANCE) Reference RangesNormal: <5.7%Prediabetes: 5.7 - 6.4%Diabetes: > 6.5% Lab Interpretation (test code = 39513-3) [facility]normal [facility]C)2023-04-07 16:39:49* Test Item Value Reference Range Interpretation Comme nts HGB A1C (test code = 4548-4) 6.8 % 4.0-5.7 H CHANCE (test code = CHANCE) Reference RangesNormal: <5.7%Prediabetes: 5.7 - 6.4%Diabetes: > 6.5% Lab Interpretation (test code = 71871-3) [facility]07 16:39:49* Test Item Value Reference Range Interpretation Comme nts HGB A1C (test code = 4548-4) 6.8 % 4.0-5.7 H CHANCE (test code = CHANCE) Reference RangesNormal: <5.7%Prediabetes: 5.7 - 6.4%Diabetes: > 6.5% Lab Interpretation (test code = 92561-0) [id number] 16:07:59* Test Item Value Reference Range Interpretation Comme nts WBC (test code = 6690-2) 12.10 See_Comment H [Automated messa ge] The system which generated this result transmitted reference range: 4.20 - 10.70 10*3/?L. The reference range was not used to interpret this result as normal/abnormal. RBC (test code = 789-8) 4.29 See_Comment [Automated messa ge] The system which generated this result transmitted reference range: 4.26 - 5.52 10*6/?L. The reference range was not used to interpret this result as normal/abnormal. HGB (test code = 718-7) 12.1 g/dL 12.2-16.4 L HCT (test code = 4544-3) 37.2 % 38.4-49.3 L MCV (test code = 787-2) 86.7 fL 81.7-95.6 MCH (test code = 785-6) 28.2 pg 26.1-32.7 MCHC (test code = 786-4) 32.5 g/dL 31.2-35.0 RDW-SD (test code = 86512-7) 48.4 fL 38.5-51.6 RDW-CV (test code = 788-0) 15.1 % 12.1-15.4 PLT (test code = 777-3) 471 See_Comment H [Automated [employer]] The system which generated this result transmitted reference range: 150 - 328 10*3/?L. The reference range was not used to interpret this result as normal/abnormal. MPV (test code = 79873-6) 8.7 fL 9.8-13.0 L NRBC/100 WBC (test code = 1070235289) 0.0 See_Comment [Automated [employer]age] The system which generated this result transmitted reference range: 0.0 - 10.0 /100 WBCs. The reference range was not used to interpret this result as normal/abnormal. NRBC x10^3 (test code = 8373649836) See_Comment [Automated [employer]] The system which generated this result transmitted reference range: 10*3/?L. The reference range was not used to interpret this result as normal/abnormal. GRAN MAT (NEUT) % (test code = 770-8) 70.7 % IMM GRAN % (test code = 3777392020) 0.70 % LYMPH % (test code = 736-9) 20.0 % MONO % (test code = 5905-5) 6.1 % EOS % (test code = 713-8) 1.8 % BASO % (test code = 706-2) 0.7 % GRAN MAT x10^3(ANC) (test code = 9402884718) 8.55 10*3/uL 1.99-6.95 H IMM GRAN x10^3 (test code = 4804534568) 0.09 10*3/uL 0.00-0.06 H LYMPH x10^3 (test code = 731-0) 2.42 10*3/uL 1.09-3.23 MONO x10^3 (test code = 742-7) 0.74 10*3/uL 0.36-1.02 EOS x10^3 (test code = 711-2) 0.22 10*3/uL 0.06-0.53 BASO x10^3 (test code = 704-7) 0.08 10*3/uL 0.01-0.09 Lab Interpretation (test code = 14544-7) Abnormal [facility] WITH [id number] 16:07:59* Test Item Value Reference Range Interpretation Comme nts WBC (test code = 6690-2) 12.10 4.20-10.70 H RBC (test code = 789-8) 4.29 4.26-5.52 HGB (test code = 718-7) 12.1 g/dL 12.2-16.4 L HCT (test code = 4544-3) 37.2 % 38.4-49.3 L MCV (test code = 787-2) 86.7 fL 81.7-95.6 MCH (test code = 785-6) 28.2 pg 26.1-32.7 MCHC (test code = 786-4) 32.5 g/dL 31.2-35.0 RDW-SD (test code = 14784-8) 48.4 fL 38.5-51.6 RDW-CV (test code = 788-0) 15.1 % 12.1-15.4 PLT (test code = 777-3) 471 150-328 H MPV (test code = 68715-8) 8.7 fL 9.8-13.0 L NRBC/100 WBC (test code = 4954398174) 0.0 0.0-10.0 NRBC x10^3 (test code = 6356760506) See_Comment [Automated messa ge] The system which generated this result transmitted reference range: 10*3/?L. The reference range was not used to interpret this result as normal/abnormal. GRAN MAT (NEUT) % (test code = 770-8) 70.7 % IMM GRAN % (test code = 7672231343) 0.70 % LYMPH % (test code = 736-9) 20.0 % MONO % (test code = 5905-5) 6.1 % EOS % (test code = 713-8) 1.8 % BASO % (test code = 706-2) 0.7 % GRAN MAT x10^3(ANC) (test code = 5589468872) 8.55 10*3/uL 1.99-6.95 H IMM GRAN x10^3 (test code = 5021270127) 0.09 10*3/uL 0.00-0.06 H LYMPH x10^3 (test code = 731-0) 2.42 10*3/uL 1.09-3.23 MONO x10^3 (test code = 742-7) 0.74 10*3/uL 0.36-1.02 EOS x10^3 (test code = 711-2) 0.22 10*3/uL 0.06-0.53 BASO x10^3 (test code = 704-7) 0.08 10*3/uL 0.01-0.09 Lab Interpretation (test code = 54674-7) [facility]:07:59* Test Item Value Reference Range Interpretation Comme nts WBC (test code = 6690-2) 12.10 4.20-10.70 H RBC (test code = 789-8) 4.29 4.26-5.52 HGB (test code = 718-7) 12.1 g/dL 12.2-16.4 L HCT (test code = 4544-3) 37.2 % 38.4-49.3 L MCV (test code = 787-2) 86.7 fL 81.7-95.6 MCH (test code = 785-6) 28.2 pg 26.1-32.7 MCHC (test code = 786-4) 32.5 g/dL 31.2-35.0 RDW-SD (test code = 33323-5) 48.4 fL 38.5-51.6 RDW-CV (test code = 788-0) 15.1 % 12.1-15.4 PLT (test code = 777-3) 471 150-328 H MPV (test code = 75530-9) 8.7 fL 9.8-13.0 L NRBC/100 WBC (test code = 0607918876) 0.0 0.0-10.0 NRBC x10^3 (test code = 6403565879) See_Comment [Automated messa ge] The system which generated this result transmitted reference range: 10*3/?L. The reference range was not used to interpret this result as normal/abnormal. GRAN MAT (NEUT) % (test code = 770-8) 70.7 % IMM GRAN % (test code = 3617239932) 0.70 % LYMPH % (test code = 736-9) 20.0 % MONO % (test code = 5905-5) 6.1 % EOS % (test code = 713-8) 1.8 % BASO % (test code = 706-2) 0.7 % GRAN MAT x10^3(ANC) (test code = 4183303059) 8.55 10*3/uL 1.99-6.95 H IMM GRAN x10^3 (test code = 1382188941) 0.09 10*3/uL 0.00-0.06 H LYMPH x10^3 (test code = 731-0) 2.42 10*3/uL 1.09-3.23 MONO x10^3 (test code = 742-7) 0.74 10*3/uL 0.36-1.02 EOS x10^3 (test code = 711-2) 0.22 10*3/uL 0.06-0.53 BASO x10^3 (test code = 704-7) 0.08 10*3/uL 0.01-0.09 Lab Interpretation (test code = 73350-6) Abnormal [facility] WITH TLOL1563-54-50 16:07:59* Test Item Value Reference Range Interpretation Comme nts WBC (test code = 6690-2) 12.10 4.20-10.70 H RBC (test code = 789-8) 4.29 4.26-5.52 HGB (test code = 718-7) 12.1 g/dL 12.2-16.4 L HCT (test code = 4544-3) 37.2 % 38.4-49.3 L MCV (test code = 787-2) 86.7 fL 81.7-95.6 MCH (test code = 785-6) 28.2 pg 26.1-32.7 MCHC (test code = 786-4) 32.5 g/dL 31.2-35.0 RDW-SD (test code = 92766-7) 48.4 fL 38.5-51.6 RDW-CV (test code = 788-0) 15.1 % 12.1-15.4 PLT (test code = 777-3) 471 150-328 H MPV (test code = 87128-2) 8.7 fL 9.8-13.0 L NRBC/100 WBC (test code = 5099691244) 0.0 0.0-10.0 NRBC x10^3 (test code = 2789087887) See_Comment [Automated messa ge] The system which generated this result transmitted reference range: 10*3/?L. The reference range was not used to interpret this result as normal/abnormal. GRAN MAT (NEUT) % (test code = 770-8) 70.7 % IMM GRAN % (test code = 2187627646) 0.70 % LYMPH % (test code = 736-9) 20.0 % MONO % (test code = 5905-5) 6.1 % EOS % (test code = 713-8) 1.8 % BASO % (test code = 706-2) 0.7 % GRAN MAT x10^3(ANC) (test code = 1237873062) 8.55 10*3/uL 1.99-6.95 H IMM GRAN x10^3 (test code = 3968585194) 0.09 10*3/uL 0.00-0.06 H LYMPH x10^3 (test code = 731-0) 2.42 10*3/uL 1.09-3.23 MONO x10^3 (test code = 742-7) 0.74 10*3/uL 0.36-1.02 EOS x10^3 (test code = 711-2) 0.22 10*3/uL 0.06-0.53 BASO x10^3 (test code = 704-7) 0.08 10*3/uL 0.01-0.09 Lab Interpretation (test code = 92519-8) Abnormal [facility] WITH GEDR4012-00-97 16:07:59* Test Item Value Reference Range Interpretation Comme nts WBC (test code = 6690-2) 12.10 4.20-10.70 H RBC (test code = 789-8) 4.29 4.26-5.52 HGB (test code = 718-7) 12.1 g/dL 12.2-16.4 L HCT (test code = 4544-3) 37.2 % 38.4-49.3 L MCV (test code = 787-2) 86.7 fL 81.7-95.6 MCH (test code = 785-6) 28.2 pg 26.1-32.7 MCHC (test code = 786-4) 32.5 g/dL 31.2-35.0 RDW-SD (test code = 73064-1) 48.4 fL 38.5-51.6 RDW-CV (test code = 788-0) 15.1 % 12.1-15.4 PLT (test code = 777-3) 471 150-328 H MPV (test code = 27782-2) 8.7 fL 9.8-13.0 L NRBC/100 WBC (test code = 6525602596) 0.0 0.0-10.0 NRBC x10^3 (test code = 6388852521) See_Comment [Automated messa ge] The system which generated this result transmitted reference range: 10*3/?L. The reference range was not used to interpret this result as normal/abnormal. GRAN MAT (NEUT) % (test code = 770-8) 70.7 % IMM GRAN % (test code = 0466157283) 0.70 % LYMPH % (test code = 736-9) 20.0 % MONO % (test code = 5905-5) 6.1 % EOS % (test code = 713-8) 1.8 % BASO % (test code = 706-2) 0.7 % GRAN MAT x10^3(ANC) (test code = 6139055045) 8.55 10*3/uL 1.99-6.95 H IMM GRAN x10^3 (test code = 2948306066) 0.09 10*3/uL 0.00-0.06 H LYMPH x10^3 (test code = 731-0) 2.42 10*3/uL 1.09-3.23 MONO x10^3 (test code = 742-7) 0.74 10*3/uL 0.36-1.02 EOS x10^3 (test code = 711-2) 0.22 10*3/uL 0.06-0.53 BASO x10^3 (test code = 704-7) 0.08 10*3/uL 0.01-0.09 Lab Interpretation (test code = 80344-4) Abnormal [facility] WITH QEOA1829-99-34 16:07:59* Test Item Value Reference Range Interpretation Comme nts WBC (test code = 6690-2) 12.10 4.20-10.70 H RBC (test code = 789-8) 4.29 4.26-5.52 HGB (test code = 718-7) 12.1 g/dL 12.2-16.4 L HCT (test code = 4544-3) 37.2 % 38.4-49.3 L MCV (test code = 787-2) 86.7 fL 81.7-95.6 MCH (test code = 785-6) 28.2 pg 26.1-32.7 MCHC (test code = 786-4) 32.5 g/dL 31.2-35.0 RDW-SD (test code = 68950-5) 48.4 fL 38.5-51.6 RDW-CV (test code = 788-0) 15.1 % 12.1-15.4 PLT (test code = 777-3) 471 150-328 H MPV (test code = 91661-7) 8.7 fL 9.8-13.0 L NRBC/100 WBC (test code = 4254833271) 0.0 0.0-10.0 NRBC x10^3 (test code = 3798594396) See_Comment [Automated messa ge] The system which generated this result transmitted reference range: 10*3/?L. The reference range was not used to interpret this result as normal/abnormal. GRAN MAT (NEUT) % (test code = 770-8) 70.7 % IMM GRAN % (test code = 3825459561) 0.70 % LYMPH % (test code = 736-9) 20.0 % MONO % (test code = 5905-5) 6.1 % EOS % (test code = 713-8) 1.8 % BASO % (test code = 706-2) 0.7 % GRAN MAT x10^3(ANC) (test code = 7361536545) 8.55 10*3/uL 1.99-6.95 H IMM GRAN x10^3 (test code = 3058849109) 0.09 10*3/uL 0.00-0.06 H LYMPH x10^3 (test code = 731-0) 2.42 10*3/uL 1.09-3.23 MONO x10^3 (test code = 742-7) 0.74 10*3/uL 0.36-1.02 EOS x10^3 (test code = 711-2) 0.22 10*3/uL 0.06-0.53 BASO x10^3 (test code = 704-7) 0.08 10*3/uL 0.01-0.09 Lab Interpretation (test code = 60052-7) Abnormal [facility] WITH PQMG5449-00-71 16:07:59* Test Item Value Reference Range Interpretation Comme nts WBC (test code = 6690-2) 12.10 4.20-10.70 H RBC (test code = 789-8) 4.29 4.26-5.52 HGB (test code = 718-7) 12.1 g/dL 12.2-16.4 L HCT (test code = 4544-3) 37.2 % 38.4-49.3 L MCV (test code = 787-2) 86.7 fL 81.7-95.6 MCH (test code = 785-6) 28.2 pg 26.1-32.7 MCHC (test code = 786-4) 32.5 g/dL 31.2-35.0 RDW-SD (test code = 66082-5) 48.4 fL 38.5-51.6 RDW-CV (test code = 788-0) 15.1 % 12.1-15.4 PLT (test code = 777-3) 471 150-328 H MPV (test code = 77572-0) 8.7 fL 9.8-13.0 L NRBC/100 WBC (test code = 3765706820) 0.0 0.0-10.0 NRBC x10^3 (test code = 0887997936) See_Comment [Automated messa ge] The system which generated this result transmitted reference range: 10*3/?L. The reference range was not used to interpret this result as normal/abnormal. GRAN MAT (NEUT) % (test code = 770-8) 70.7 % IMM GRAN % (test code = 5054508489) 0.70 % LYMPH % (test code = 736-9) 20.0 % MONO % (test code = 5905-5) 6.1 % EOS % (test code = 713-8) 1.8 % BASO % (test code = 706-2) 0.7 % GRAN MAT x10^3(ANC) (test code = 6995195511) 8.55 10*3/uL 1.99-6.95 H IMM GRAN x10^3 (test code = 9531703787) 0.09 10*3/uL 0.00-0.06 H LYMPH x10^3 (test code = 731-0) 2.42 10*3/uL 1.09-3.23 MONO x10^3 (test code = 742-7) 0.74 10*3/uL 0.36-1.02 EOS x10^3 (test code = 711-2) 0.22 10*3/uL 0.06-0.53 BASO x10^3 (test code = 704-7) 0.08 10*3/uL 0.01-0.09 Lab Interpretation (test code = 22231-0) Abnormal [facility] Notes Date/Time Note Provider Source 2023-05-22 15:44:18 UvAcggsVSddpjgHhzV+U FT8nb3+5cpuHrp MC2LdIhawT1yJedqoO59StT1guJ6cT1054 -02-26T15:44:18 Called Trell Larson at [phone] no answer not able to leave mail. Will call again tomorrow. 33250-6Xslruzmxo encounter SmcxKY2222-32-71T40:49:28Telephone encounter NoteTXT1.2.840.234817.1.13.104.2.7 .2.962510|[id number] for patient jgft52061-7JwrsQLCESIHRMFVVfrzaqdq d C-CDA narrative [id number] J Cordell RN[id number] 72MAUNXBCTFIMZVLFPKIHYFY8134-89-63 T15:49:281.2.840.187951.1.72.3.15| 1.2.840.467553.1.13.104.2.7.2.7278 [id number] Shanique Hernandez RN [facility] 2023-05-22 15:34:47 P0zilYlc5fuf6ZQgWt+8 Wk7twmBgaS12eE du1tqI3DjDdhbyNGP4QMi3yPaVj+2287182023T15:34:47 Images from the original note were not included.New start DMEThe following has been sent to the provider for completion via [employer]/FAXOrders pended for [facility] companyPrescription for CPAPSleep study /data report dated - 4Demographics - Face sheetInsurance InformationProgress Notes from office visit prior to sleep study - 03/15/2023LOVN 05/09/2023Follow up due 31-90 days following initiation of any device. 42477-2Mcvxprnov encounter SnpuMJ0476-75-09P26:49:28Telephone encounter NoteTXT1.2.840.208413.1.13.104.2.7 .2.855413|[id number] for patient eqyu10356-3EbsnCAPCXVRFCOQEvvrscfi d C-CDA narrative text[id number] 26FPSIRWZLEZSMPHUDCFYFQA8606-12-83 T15:49:281.2.840.248563.1.72.3.15| 1.2.840.047299.1.13.104.2.7.2.7278 [id number] [facility] 2023-05-17 11:09:54 onYsrBdQXOtveyr3gz/O tVcGjdxAtfdRnx e/nphRxtNsiwko04KL57vEycyzhvsX7984 -02-21T11:09:54 Trell Larson is a 37 year old malePt is calling because he has ot hear from anyone about his new CPAP machine, Please call pt to confirm DME company and orders. 66183-0Ctmjaphvx encounter GfndJR5733-67-66L91:11:38Telephone encounter NoteTXT1.2.840.904929.1.13.104.2.7 .2.852371|1225250257CCWmozqlddp for patient kvni56599-3NtlaSMHCHWRXTSXAhwwthmt d C-CDA narrative [id number] H Hollinger[id number] 29MMNCQIOKQYPPVSFTXGSPTV1235-15-94 T11:11:381.2.840.165455.1.72.3.15| 1.2.840.260741.1.13.104.2.7.2.7278 [id number] Neha Richmond [facility] 2023-04-24 11:48:44 rQ/5MwnmMtgeE7WIEEfB eInZXbo7q5VDcD KHuaDujhAXxEspMDc9irXfi0u74HFL9156 -01-29T11:48:44 Patient Is scheduled for the 09 of May offered sooner appointment but wanted to keep the . 02931-6Asnflmfyw encounter TmonEV5805-35-60J35:50:01Telephone encounter NoteTXT1.2.840.098072.1.13.104.2.7 .2.154897|7830266971FCZedphvgxr for patient krki09288-4SqldVVZWKZPLKYCVtwjuvhu d C-CDA narrative sstd459186424Udmxh[address] MsikLk[id number] 39VEHGSMXGPDRHMCSCDAKVZI2076-41-05 T11:50:011.2.840.427393.1.72.3.15| 1.2.840.377521.1.13.104.2.7.2.7278 [id number] Carla Patel [facility] 2023-04-21 13:41:57 tg4PsIKURyLtoCrkTNjp LlwwhIBEK59Al0 OvmE8CvFAMmgbXEV/NPceSpuJcinUq0632 -01-26T13:41:57 Please call patient to schedule follow up at her earliest availability to discuss sleep study results.Patient was diagnosed with Obstructive Sleep Syndrome on 04/06/23. Home sleep test revealed an apnea-hypopnea index of 22.5 events per hour of total sleep (normal<5/hr) with a minimum oxygen saturation of 85%. 96824-0Exirqmlzf encounter TiauCZ9982-97-26I07:43:38Telephone encounter NoteTXT1.2.840.782533.1.13.104.2.7 .2.544781|9611838686RVRtapskqda for patient zwcy69958-8IiluZGTCJEDXPSCYitzzpen d C-CDA narrative textNP-FAMILY MIDLEVEL PROVIDERNP-FAMILY MIDLEVEL PROVIDER[id number] 13VYHTBCYANQBDDAQMKVCZLZ1225-58-05 T13:43:381.2.840.766515.1.72.3.15| 1.2.840.200264.1.13.104.2.7.2.7278 [id number] SALES AGENT-FAMILY MIDLEVEL PROVIDER [facility] 2023-04-07 11:15:00 c1hCWa+HJindZHy8Fa0e xzzebN+g4zO9gb +iRAuNk11OtbuerxTveTsQC14+7+6q7894T11:15:00 Images from the original note were not included.Venipuncture collection performed by clean technique on the back of right hand. Total of 1 attempts were made. Slight pressure and a bandage/dressing were applied to the site(s). The patient experienced no complications. The following specimens were processed according to instructions and sent to [facility] laboratories per lab order on 04/07/2023 :LT BLUESST 1REDLAV 2PPTDK GREEN (LiHep)DK GREEN (SodH)GRAYDK BLUE (K2)DK BLUE (S)ACDBlood CultureNIPT/NTD 14169-5Ubaxf ZxajBP4513-32-07C67:00:16Nurse NoteTXT1.2.840.694171.1.13.104.2.7 .2.789210|[id number] for patient jspb83653-4Kcqxe NoteLNNARRATIVEFormatted C-CDA narrative text[id number] 61POAJYVQYHYAHCGELEGMODN2621-66-23 T10:00:161.2.840.236126.1.72.3.15| 1.2.840.859997.1.13.104.2.7.2.7278 [id number] [facility]"
[2023-08-15] MEDS ORDERED: DIPHENHYDRAMINE 50 MG/ML VIAL ONE (10:00)
[2023-08-15] MEDS ORDERED: KETOROLAC 30 MG/ML INJ ONE (10:00)
[2023-08-15] MEDS ORDERED: METOCLOPRAMIDE 10 MG/2mL INJ ONE (10:01)
[2023-08-15] MEDS ORDERED: NA CHLORIDE 0.9% 1,000 ML ONE ×2 (10:01→11:18)
[2023-08-15 10:33] LABS: Sqamous Epithelial None Seen /HPF (None Seen); Urine Bacteria None Seen /HPF (<20); Urine Culture Reflex Order REFLEXED; Urine Mucus Slight /HPF (None Seen); Urine RBC >50 /HPF (None Seen); Urine WBC >50 /HPF (<5); Urine WBC Clump Many /HPF (None Seen); Urine Yeast (Budding) Trace /HPF (None Seen)
[2023-08-15 10:34] LABS: Specific Gravity 1.022 (1.005-1.030); Urine Bilirubin NEGATIVE (Negative); Urine Blood 2+ (Negative); Urine Clarity Extremely Turbid (Clear); Urine Color Light-Orange (Yellow); Urine Glucose NEGATIVE (Negative); Urine Ketones NEGATIVE (Negative); Urine Microscopic Reflex YN NO UMIC; Urine Nitrite NEGATIVE (Negative); Urine Protein 2+ (Negative); Urine Urobilinogen Normal (Normal); Urine pH 5.5 (5.0-7.0)
--- NOTE | 2023-08-15 10:39 | RAD REPORT ---
EXAM DESCRIPTION: CT - Head Brain Wo Cont - 08/15/2023 10:13 am CLINICAL HISTORY: Headache COMPARISON: none TECHNIQUE: Computed axial tomography of the head was obtained. IV contrast was not requested. All CT scans are performed using dose optimization technique as appropriate and may include automated exposure control or mA/KV adjustment according to patient size. FINDINGS: An intracranial bleed is not seen The ventricles are normal in caliber No significant hypodense areas within the brain visualized No extra-axial fluid collection is noted. Fluid within the sinuses/ mastoids is not seen IMPRESSION: No acute intracranial abnormality is seen If patient's symptoms persist MRI of the brain would be recommended
[2023-08-15 10:42] LABS: Absolute Basophils 0.1 K/uL (0-0.5); Absolute Lymphocytes (CBC) 2.3 K/uL (0.7-4.9); Absolute Monocytes 1.2 K/uL (0.1-1.3); Absolute Neutrophil 13.9 K/uL (1.8-8.0); Basophils % 0.4 % (0-1.3); Eosinophils % 0.2 % (0-4.4); Hematocrit 26.2 % (39.6-49.0); MCH 22.8 pg (27.0-35.0); MCHC 30.4 g/dL (32.0-36.0); Monocytes % 6.7 % (3.3-12.3); Neutrophils % 79.7 % (41.7-73.7); Platelets 830 thou/uL (152-406); RBC Red Blood Cell Count 3.49 M/uL (4.33-5.43)
[2023-08-15 10:44] LABS: Albumin 2.4 g/dL (3.4-5.0); Albumin/Globulin Ratio 0.3 (1.1-1.8); Anion Gap 8.2 mEq/L (5.0-15.0); Bilirubin Total 0.5 mg/dL (0.2-1.0); Globulin 7.5 g/dL (2.3-3.5); Potassium 4.2 mEq/L (3.5-5.1); Protein, Total 9.9 g/dL (6.4-8.2)
--- NOTE | 2023-08-15 10:46 | RAD REPORT ---
EXAM DESCRIPTION: CT - Abdomen Pelvis W Contrast - 08/15/2023 10:17 am CLINICAL HISTORY: Abdominal pain COMPARISON: none. TECHNIQUE: Computed axial tomography of the abdomen pelvis was obtained. 100 cc Isovue-300 was admin istered intravenously. Oral contrast was not requested which limits evaluation of bowel and appendix All CT scans are performed using dose optimization technique as appropriate and may include automated exposure control or mA/KV adjustment according to patient size. FINDINGS: A staghorn calculus 22 millimeter left renal pelvis. Mild dilatation of the renal pelvis. Marked dilatation of the calices. The left kidney is enlarged with stranding in the adjacent fat. Th is has the appearance of the xanthogranulomatous pyelonephritis. 2 millimeter calcification is present within the lower pole of the right kidney. It may lie within a calyceal diverticulum. Cholecystectomy Liver, spleen, pancreas and adrenals unremarkable No evidence of diverticulitis IMPRESSION: Left xanthogranulomatous pyelonephritis
[2023-08-15] MEDS ORDERED: Meropenem 1000 MG/VIAL IV ONE (10:55)
[2023-08-15] MEDS ORDERED: NA CHLORIDE 0.9% 100 ML ONE (10:56)
[2023-08-15] MEDS ORDERED: Levofloxacin500mg IV 500 MG/100 ML BAG IV ONE (10:56)
[2023-08-15] MEDS ORDERED: FAMOTIDINE 20 MG/2 ML VIAL IV ONE (11:18)
--- NOTE | 2023-08-15 11:40 | EDPHYS ---
Physician Documentation [facility] Name: Trell Ni Age: 37 yrs Sex: Male : 1985 Arrival Date: 08/15/2023 Time: 09:38 Bed 18 Private MD: THONG Physician Derrick Bess HPI: 08/14 11:29 This 37 yrs old Male presents to ER via Ambulatory with complaints of nelia Headache, Abdominal Pain. 11:29 The patient complains of pain to the forehead. The patient describes the headache as nelia aching. Onset: The symptoms/episode began/occurred 2 day(s) ago. Associated signs and symptoms: Pertinent positives: dizziness, nausea. Severity of symptoms: At its worst the pain was mild, in the emergency department the pain is unchanged. Headache History: The patient has had previous headaches and this one is similar to previous episodes. The symptoms are alleviated by nothing. the symptoms are aggravated by nothing. The patient has not experienced similar symptoms in the past. Historical: - Allergies: 10:00 Claritin; ld1 - PMHx: 10:00 ADD/ADHD; Depression; Anemia; ld1 - Immunization history:: Adult Immunizations up to date. - Infectious Disease History:: Denies. - Social history:: Smoking status: Patient denies any tobacco usage or history of. - Family history:: not pertinent. ROS: 11:29 Constitutional: Negative for fever, chills, and weight loss, Eyes: Negative for injury, nelia pain, redness, and discharge, ENT: Negative for injury, pain, and discharge, Neck: Negative for injury, pain, and swelling, Cardiovascular: Negative for chest pain, palpitations, and edema, Respiratory: Negative for shortness of breath, cough, wheezing, and pleuritic chest pain, : Negative for injury, bleeding, discharge, and swelling, MS/Extremity: Negative for injury and deformity, Skin: Negative for injury, rash, and discoloration, Psych: Negative for depression, anxiety, suicide ideation, homicidal ideation, and hallucinations, Allergy/Immunology: Negative for hives, rash, and allergies, Endocrine: Negative for neck swelling, polydipsia, polyuria, polyphagia, and marked weight changes, Hematologic/Lymphatic: Negative for swollen nodes, abnormal bleeding, and unusual bruising, 11:29 Abdomen/GI: Positive for abdominal pain, nausea and vomiting, of the suprapubic area, anterior aspect of left lateral abdomen, posterior aspect of left lateral abdomen, right lower quadrant and left lower quadrant, 11:29 Skin: Positive for pallor, Exam: 11:29 Constitutional: This is a well developed, well nourished patient who is awake, alert, nelia and in no acute distress. Head/Face: Normocephalic, atraumatic. Eyes: Pupils equal round and reactive to light, extra-ocular motions intact. Lids and lashes normal. Conjunctiva and sclera are non-icteric and not injected. Cornea within normal limits. Periorbital areas with no swelling, redness, or edema. ENT: Nares patent. No nasal discharge, no septal abnormalities noted. Tympanic membranes are normal and external auditory canals are clear. Oropharynx with no redness, swelling, or masses, exudates, or evidence of obstruction, uvula midline. Mucous membranes moist. Neck: Trachea midline, no thyromegaly or masses palpated, and no cervical lymphadenopathy. Supple, full range of motion without nuchal rigidity, or vertebral point tenderness. No Meningismus. Chest/axilla: Normal chest wall appearance and motion. Nontender with no deformity. No lesions are appreciated. Cardiovascular: Regular rate and rhythm with a normal S1 and S2. No gallops, murmurs, or rubs. Normal PMI, no JVD. No pulse deficits. Respiratory: Lungs have equal breath sounds bilaterally, clear to auscultation and percussion. No rales, rhonchi or wheezes noted. No increased work of breathing, no retractions or nasal flaring. Male : Normal genitalia with no discharge or lesions. MS/ Extremity: Pulses equal, no cyanosis. Neurovascular intact. Full, normal range of motion. Neuro: Awake and alert, GCS 15, oriented to person, place, time, and situation. Cranial nerves II-XII grossly intact. Motor strength 5/5 in all extremities. Sensory grossly intact. Cerebellar exam normal. Normal gait. Psych: Awake, alert, with orientation to person, place and time. Behavior, mood, and affect are within normal limits. 11:29 Abdomen/GI: Inspection: distension, that is mild, Bowel sounds: normal, Palpation: mild abdominal tenderness, in the suprapubic area, left upper quadrant and left lower quadrant, Liver: no appreciated palpable abnormalities, Hernia: not appreciated, 11:29 Skin: Appearance: Color: pale, Temperature: normal temperature, Moisture: normal moisture, petechiae, not noted, ecchymosis, not noted, abscess, not appreciated, cellulitis, is not appreciated, induration, is not appreciated, injury, is not appreciated, 11:29 Neuro: Orientation: is normal, appropriate for stated age, no acute changes, Mentation: is normal, appropriate for stated age, no acute changes, Memory: is normal, appropriate for stated age, no acute changes, Cranial nerves: grossly normal, is grossly normal based on the patient's age, no acute changes, Cerebellar function: is grossly normal, is grossly normal based on the patient's age, no acute changes, Motor: is normal, is grossly normal based on the patient's age, no acute changes, moves all fours, strength is normal, strength is 5/5 in all extremities, Sensation: is normal, no obvious gross deficits, appropriate no acute changes, Gait: is steady, at a normal pace, without difficulty, Babinski testing is normal, Vital Signs: 09:59 BP 121 / 84; Pulse 118; Resp 18; Temp 98.6(TE); Pulse Ox 97% on R/A; Weight 106.59 kg; ld1 Height 6 ft. 2 in. ; Pain 1/10; 11:28 BP 102 / 64; Pulse 98; Resp 18; Pulse Ox 100% on R/A; mb9 13:05 BP 115 / 72; Pulse 102; Resp 18; Pulse Ox 100% on R/A; mb9 09:59 Body Mass Index 30.17 (106.59 kg, 187.96 cm) ld1 09:59 Pain Scale: Adult ld1 Eric Coma Score: 11:32 Eye Response: spontaneous(4). Motor Response: obeys commands(6). Verbal Response: nelia oriented(5). Total: 15. MDM: 09:49 Patient medically screened. nelia 11:32 Differential diagnosis: hyponatremia, intracerebral hemorrhage, migraine, neoplasm, nelia sinusitis, subarachnoid bleed, subdural hematoma, temporal arteritis, tension headache, trigeminal neuralgia, vasomotor headache. Data reviewed: vital signs, nurses notes, lab test result(s), radiologic studies, CT scan. Consideration of Admission/Observation Patient was admitted/placed on observation. Escalation of care including admission/observation considered. I considered the following discharge prescriptions or medication management in the emergency department Medications were administered in the Emergency Department. See MAR. Independent interpretation of the following test(s) in the Emergency Department EKG: See my EKG interpretation above. Test considered but Not performed: Ultrasound NO RENAL USG. Historians other than the Patient: PT WELL INFORMED. Care significantly affected by the following chronic conditions: Obesity, ANEMIA, ADD, ADHD, DEPRESSION. 08/14 09:52 Order name: CBC with Diff; Complete Time: 10:53 [facility] 08/14 09:52 Order name: Comprehensive Metabolic Panel; Complete Time: 10:53 [facility] 08/14 09:52 Order name: Urinalysis w/ reflexes; Complete Time: 10:53 [facility] 08/14 09:59 Order name: Lipase [facility] 08/14 10:25 Order name: CREATININE WHOLE BLOOD; Complete Time: 10:53 [facility] 08/14 10:38 Order name: Urine Culture EDCT 08/14 09:52 Order name: CT Head Brain wo Cont; Complete Time: 10:53 [facility] 08/14 09:59 Order name: CT Abd/Pelvis - IV Contrast Only; Complete Time: 10:53 [facility] 08/14 12:45 Order name: NPO; Complete Time: 12:58 [facility] Administered Medications: 10:22 Drug: NS 0.9% IV 1000 ml IV at 1 bolus Per protocol; 1000 mL bolus Route: IV; Rate: 1 mb9 bolus; Site: right antecubital; 11:28 Follow up: Response: No adverse reaction; IV Status: Completed infusion mb9 10:22 Drug: Ketorolac IVP 30 mg IVP once; IF UPT NEG Route: IVP; Site: right antecubital; mb9 11:28 Follow up: Response: No adverse reaction mb9 10:26 Drug: diphenhydrAMINE IVP 25 mg IVP once Route: IVP; Site: right antecubital; mb9 11:28 Follow up: Response: No adverse reaction mb9 10:26 Drug: metoCLOPramide IVP 10 mg IVP once; over 1 to 2 minutes Route: IVP; Site: right mb9 antecubital; 11:28 Follow up: Response: No adverse reaction mb9 11:00 Drug: Meropenem IV 1 grams IV at per protocol once; (mix in NS 100 mL) Route: IV; Rate: mb9 per protocol; Site: right antecubital; 11:56 Follow up: Response: No adverse reaction; IV Status: Completed infusion mb9 11:20 Drug: Famotidine IVP 20 mg IVP once; dilute with 10 mL 0.9% NaCl; give over 2 minutes mb9 Route: IVP; Site: right antecubital; 11:55 Follow up: Response: No adverse reaction mb9 11:27 Drug: levofloxacin IVPB 500 mg 100 ml IVPB once over 60 mins Volume: 100 ml; Route: mb9 IVPB; Infused Over: 60 mins; Site: right antecubital; 11:27 Drug: NS 0.9% IV 1000 ml IV at 1 bolus Per protocol; 1000 mL bolus Route: IV; Rate: 1 mb9 bolus; Site: right antecubital; 13:04 Follow up: Response: No adverse reaction; IV Status: Completed infusion mb9 11:35 Drug: Mucomyst - Acetylcysteine PO 600 mg PO once Route: PO; mb9 11:55 Follow up: Response: No adverse reaction mb9 Disposition Summary: 08/15/23 11:40 Hospitalization Ordered Notes: Hospitalization Status: Inpatient Admission nelia Provider: Delma Rahman cha Condition: Fair nelia Problem: new nelia Symptoms: have improved nelia Bed/Room Type: Standard nelia Location: [facility] ER HOLD(08/15/23 13:32) bd Room Assignment: ERHOLD-(08/15/23 13:32) bd Diagnosis - Hydronephrosis with renal and ureteral calculous obstruction - 22 mm left staghorn nelia left renal pelvis - Pyelonephritis acute - LEFT xanthogranulomatous pyelo nelia - Anemia, unspecified nelia - Elevated white blood cell count nelia - Headache nelia Forms: - Medication Reconciliation Form nelia - SBAR form nelia - Leadership Thank You Letter nelia Signatures: Dispatcher [employer] EDMS Leanne Gomez Corey, MD MD cha Sims, Lauren, RN RN ld1 Minda Humphreys RN RN mb9 Corrections: (The following items were deleted from the chart) 10:02 09:53 Test, Urine+[id number].LAB.BRZ ordered. EDMS EDMS 13:32 11:40 Telemetry/MedSurg (Inpatient) nelia bd 13:32 11:40 nelia bd
--- NOTE | 2023-08-15 11:40 | ER ---
Nurse's Notes 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 Recently ld1 diagnosed with anemia and elevated WBC count. Coronavirus screen: At this time, the client does not indicate any symptoms associated with coronavirus-19. Ebola Screen: No symptoms or risks identified at this time. Initial Sepsis Screen: Does the patient meet any 2 criteria? No. Patient's initial sepsis screen is negative. Does the patient have a suspected source of infection? No. Patient's initial sepsis screen is negative. Risk Assessment: Do you want to hurt yourself or someone else? Patient reports no desire to harm self or others. Onset of symptoms was August 15, 2023 at 10:00. 09:59 Method Of Arrival: Ambulatory ld1 09:59 Acuity: MARIAM 3 ld1 Triage Assessment: 10:00 General: Appears in no apparent distress. comfortable, Behavior is calm, cooperative, ld1 appropriate for age. Pain: Complains of pain in right lower quadrant and left lower quadrant Pain does not radiate. Pain currently is 1 out of 10 on a pain scale. Quality of pain is described as throbbing, Pain began suddenly, Is continuous. EENT: No signs and/or symptoms were reported regarding the EENT system. Neuro: Level of Consciousness is awake, alert, obeys commands, Oriented to person, place, time, situation. Cardiovascular: Capillary refill < 3 seconds Patient's skin is warm and dry. Respiratory: Airway is patent Respiratory effort is even, unlabored. GI: Abdomen is round non-distended, Reports lower abdominal pain. : No signs and/or symptoms were reported regarding the genitourinary system. Derm: No signs and/or symptoms reported regarding the dermatologic system. Musculoskeletal: No signs and/or symptoms reported regarding the musculoskeletal system. Historical: - Allergies: 10:00 Claritin; ld1 - PMHx: 10:00 ADD/ADHD; Depression; Anemia; ld1 - Immunization history:: Adult Immunizations up to date. - Infectious Disease History:: Denies. - Social history:: Smoking status: Patient denies any tobacco usage or history of. - Family history:: not pertinent. Screenin:12 [facility] ED Fall Risk Assessment (Adult) History of falling in the last 3 months, mb9 including since admission No falls in past 3 months (0 pts) Confusion or Disorientation No (0 pts) Intoxicated or Sedated No (0 pts) Impaired Gait No (0 pts) Mobility Assist Device Used No (0 pt) Altered Elimination No (0 pt) Score/Fall Risk Level 0 - 2 = Low Risk Oriented to surroundings, Maintained a safe environment, Educated pt \T\ family on fall prevention, incl call for assistance when getting out of bed. Abuse screen: Denies threats or abuse. Nutritional screening: No deficits noted. Tuberculosis screening: No symptoms or risk factors identified. Assessment: 10:10 General: Appears in no apparent distress. Behavior is calm, cooperative. Pain: mb9 Complains of pain in abdomen and head Pain does not radiate. Pain currently is 8 out of 10 on a pain scale. Quality of pain is described as throbbing. Neuro: Jackson Agitation-Sedation Scale (RASS): 0 - Alert and Calm Level of Consciousness is awake, alert, obeys commands, Oriented to person, place, time, situation, Appropriate for age. Neuro: Reports dizziness, headache. Cardiovascular: Heart tones S1 S2 present. Respiratory: Airway is patent Respiratory effort is even, unlabored, Respiratory pattern is regular, symmetrical, Breath sounds are clear bilaterally. GI: Abdomen is round non-distended, Bowel sounds present X 4 quads. Abd is soft Abdomen is tender to palpation in right lower quadrant and left lower quadrant. : No signs and/or symptoms were reported regarding the genitourinary system. EENT: No signs and/or symptoms were reported regarding the EENT system. Derm: Skin is pink, warm \T\ dry. Musculoskeletal: Range of motion: intact in all extremities. 11:28 Reassessment: No changes from previously documented assessment. Patient and/or family mb9 updated on plan of care and expected duration. Pain level reassessed. Patient is alert, oriented x 3, equal unlabored respirations, skin warm/dry/pink. 13:05 Reassessment: No changes from previously documented assessment. Patient and/or family mb9 updated on plan of care and expected duration. Pain level reassessed. Patient is alert, oriented x 3, equal unlabored respirations, skin warm/dry/pink. Vital Signs: 09:59 BP 121 / 84; Pulse 118; Resp 18; Temp 98.6(TE); Pulse Ox 97% on R/A; Weight 106.59 kg; ld1 Height 6 ft. 2 in. ; Pain 04/05; 11:28 BP 102 / 64; Pulse 98; Resp 18; Pulse Ox 100% on R/A; mb9 13:05 BP 115 / 72; Pulse 102; Resp 18; Pulse Ox 100% on R/A; mb9 09:59 Body Mass Index 30.17 (106.59 kg, 187.96 cm) ld1 09:59 Pain Scale: Adult ld1 Eric Coma Score: 11:32 Eye Response: spontaneous(4). Motor Response: obeys commands(6). Verbal Response: nelia oriented(5). Total: 15. ED Course: 09:42 Patient arrived in ED. bd 09:49 Derrick Bess MD is Attending Physician. nelia 09:53 Minda Humphreys RN is Primary Nurse. mb9 10:00 Triage completed. ld1 10:00 Arm band placed on right wrist. ld1 10:11 Placed in gown. Bed in low position. Call light in reach. Side rails up X 1. Provided mb9 Education on: press call light if needing anything. Client placed on continuous cardiac and pulse oximetry monitoring. NIBP monitoring applied. fingerer on. Door closed. Noise minimized. Warm blanket given. 10:12 No provider procedures requiring assistance completed. mb9 10:15 CT Head Brain wo Cont In Process Unspecified. EDMS 10:18 CT Abd/Pelvis - IV Contrast Only In Process Unspecified. EDMS 10:26 Inserted saline lock: 22 gauge in right antecubital area, using aseptic technique. mb9 11:37 Delma Rahman MD is Hospitalizing Provider. nelia 12:00 Urine Culture Sent. mb9 13:43 Patient admitted, IV remains in place. mb9 Administered Medications: 10:22 Drug: NS 0.9% IV 1000 ml IV at 1 bolus Per protocol; 1000 mL bolus Route: IV; Rate: 1 mb9 bolus; Site: right antecubital; 11:28 Follow up: Response: No adverse reaction; IV Status: Completed infusion mb9 10:22 Drug: Ketorolac IVP 30 mg IVP once; IF UPT NEG Route: IVP; Site: right antecubital; mb9 11:28 Follow up: Response: No adverse reaction mb9 10:26 Drug: diphenhydrAMINE IVP 25 mg IVP once Route: IVP; Site: right antecubital; mb9 11:28 Follow up: Response: No adverse reaction mb9 10:26 Drug: metoCLOPramide IVP 10 mg IVP once; over 1 to 2 minutes Route: IVP; Site: right mb9 antecubital; 11:28 Follow up: Response: No adverse reaction mb9 11:00 Drug: Meropenem IV 1 grams IV at per protocol once; (mix in NS 100 mL) Route: IV; Rate: mb9 per protocol; Site: right antecubital; 11:56 Follow up: Response: No adverse reaction; IV Status: Completed infusion mb9 11:20 Drug: Famotidine IVP 20 mg IVP once; dilute with 10 mL 0.9% NaCl; give over 2 minutes mb9 Route: IVP; Site: right antecubital; 11:55 Follow up: Response: No adverse reaction mb9 11:27 Drug: levofloxacin IVPB 500 mg 100 ml IVPB once over 60 mins Volume: 100 ml; Route: mb9 IVPB; Infused Over: 60 mins; Site: right antecubital; 11:27 Drug: NS 0.9% IV 1000 ml IV at 1 bolus Per protocol; 1000 mL bolus Route: IV; Rate: 1 mb9 bolus; Site: right antecubital; 13:04 Follow up: Response: No adverse reaction; IV Status: Completed infusion mb9 11:35 Drug: Mucomyst - Acetylcysteine PO 600 mg PO once Route: PO; mb9 11:55 Follow up: Response: No adverse reaction mb9 Medication: 10:12 VIS not applicable for this client. mb9 Outcome: 11:40 Decision to Hospitalize by Provider. nelia 13:52 Admitted to OR Report called to CHRISTOS Mauricio mb9 13:52 Condition: stable 13:52 Instructed on the need for admit, 14:14 Patient left the ED. mb9 Signatures: Dispatcher [employer] EDLeanne Grider Corey, MD MD cha Sims, Lauren RN RN ld1 Juliann, Minda Rodriguez RN RN mb9
[2023-08-15] MEDS: ACETYLCYST 20% 800 MG/4 ML VIAL PO ONE (12:00)
[2023-08-15] MEDS ORDERED: NA CHLORIDE 0.9% 1,000 ML IV SCH (15:00)
[2023-08-15] MEDS ORDERED: ONDANSETRON 4 MG/2 ML VIAL ONE (15:10)
[2023-08-15] MEDS ORDERED: FENTANYL CITR 100 MCG/2 ML ONE (15:10)
[2023-08-15] MEDS ORDERED: propofoL 200 MG/20 ML VIAL IV ONE (15:10)
[2023-08-15] MEDS ORDERED: LIDOCAINE 1% MPF 5 ML VIAL ONE (15:10)
[2023-08-15] MEDS ORDERED: MIDAZOLAM HCL 2 MG/2 ML INJ ONE (15:10)
--- NOTE | 2023-08-15 15:11 | P.HP ---
Certification for Inpatient Patient admitted to: Inpatient With expected LOS: >2 Midnights Patient will require the following post-hospital care: None Practitioner: I am a practitioner with admitting privileges, knowledge of patient current condition, hospital course, and medical plan of care. Services: Services provided to patient in accordance with Admission requirements found in Title 42 Section 412.3 of the Code of Federal Regulations <Angela Zavala - Last Filed: 08/15/23 18:22> Patient History Date of Service: 08/15/23 Reason for admission: pyelonephritis History of Present Illness: 37-year-old gentleman with DM 2, hypertension, hypercholesterolemia, and morbid obesity presented to the emergency department with generalized malaise and a headache. The malaise had been present for likely the last 2 months, and he acknowledged some occasional sporadic chills/rigors. He denied any known fevers, nausea or vomiting, and he denied any particular flank pain. He acknowledges the presence of some dysuria and cloudy urine. laboratory analyses: Creatinine 1.30, WBC 17.4, hemoglobin 8.0, platelets 830, UA micro 2+ leukocyte Estrace, greater than 50 RBCs per hpf, greater than 50 WBCs per hpf, no bacteria seen. CT abdomen pelvis with IV contrast: Findings: "22 mm calculus within the left renal pelvis. Mild dilation of the renal pelvis. Marked dilation of the calyces. Adjacent perinephric fat stranding with the appearance of xanthogranulomatous pyelonephritis. 2 mm calcification present within the lower pole of the right kidney which may lie within a calyceal diverticulum. Other organs unremarkable. Status post cholecystectomy." He will be admitted for IV antibiotics and consultation with Dr. Saini. - Past Medical/Surgical History Has patient received pneumonia vaccine in the past: No Diabetic: Yes -: DM -: ADHD -: Bipolar -: Autism -: Cholecystectomy Psychosocial/ Personal History: Pt lives alone. Was adopted. He knows his biological Brother but neither know much re: biological PMH - Social History Smoking Status: Former smoker Alcohol use: No CD- Drugs: No Caffeine use: Yes Place of Residence: Home <Angela Zavalalen - Last Filed: 08/15/23 18:22> Date of Service: 08/15/23 <Delma Rahman - Last Filed: 08/15/23 21:47> Allergies loratadine [From Claritin] Allergy (Verified 08/15/23 19:49) Shortness of breath Home Medications: Lurasidone HCl [Latuda] 40 mg PO DAILY 08/15/23 Metformin HCl 1 tab PO BID 08/15/23 Sertraline [Zoloft*] 100 mg PO DAILY 08/15/23 Review of Systems 10-point ROS is otherwise unremarkable General: Fever, As per HPI Musculoskeletal: As per HPI Neurological: As per HPI <Angela Zavala Les - Last Filed: 08/15/23 18:22> Physical Examination - Vital Signs Temperature: 98.6 F Blood Pressure: 115/72 Pulse: 102 Respirations: 18 - Physical Exam General: Alert, In no apparent distress, Oriented x3, Obese HEENT: Atraumatic, Normocephalic Neck: JVD not distended Respiratory: Normal air movement Cardiovascular: Normal pulses, Regular rate/rhythm Capillary refill: <2 Seconds Gastrointestinal: Soft and benign Musculoskeletal: No clubbing Integumentary: No rashes, Other (pallor) Neurological: Normal speech, Normal tone Lymphatics: No axilla or inguinal lymphadenopathy External genitalia: Deferred Rectal: Deferred - Studies Laboratory Data (last 24 hrs) 08/15/23 08/15/23 10:10 10:10 WBC 17.40 H Hgb 8.0 L Hct 26.2 L Plt Count 830 H Sodium 132 L Potassium 4.2 BUN 11 Creatinine 1.30 Glucose 158 H Total Bilirubin 0.5 AST 13 L ALT 16 Alkaline Phosphatase 60 <Angela Zavala - Last Filed: 08/15/23 18:22> - Studies Laboratory Data (last 24 hrs) 08/15/23 08/15/23 08/15/23 10:10 10:10 10:10 WBC Hgb Hct Plt Count Sodium 132 L Potassium 4.2 BUN 11 Creatinine 1.30 Glucose 158 H Uric Acid 3.6 Total Bilirubin 0.5 AST 13 L ALT 16 Alkaline Phosphatase 60 Lipase 30 08/15/23 10:10 WBC 17.40 H Hgb 8.0 L Hct 26.2 L Plt Count 830 H Sodium Potassium BUN Creatinine Glucose Uric Acid Total Bilirubin AST ALT Alkaline Phosphatase Lipase <Delma Rahman - Last Filed: 08/15/23 21:47> Assessment and Plan - Plan Assessment 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 Saini) and Neprology (Dr. Bee) Gentle hydration UA/UC Broadspectrum IV abx and following cultures NPO Pt currently denies pain - pain management prn S/P renal stent, residential abx therapy. Will order PICC. - Advance Directives Does patient have a Living Will: No Does patient have a Durable POA for Healthcare: No - Code Status/Comfort Care Code Status Assessed: Yes (Full) <Angela Zavala Les - Last Filed: 08/15/23 18:22> - Plan Pt seen and examined. I agree with the note by the SUPERVISING APPRAISER. Pt is a 37yo male with past medical history of DM 2, hypertension, hypercholesterolemia, and morbid obesity who presents with generalized malaise and headache. The malaise started about 2 months agoa also associated with intermittent chills. He reports cloudy urine and dysuria. On admission, lab studies show Creatinine 1.30, WBC 17.4, hemoglobin 8.0, platelets 830, UA shows micro 2+ leukocyte Estrace, greater than 50 RBCs per hpf, greater than 50 WBCs per hpf, no bacteria seen. CT abdomen/pelvis with IV contrast showed a 22 mm calculus within the left renal pelvis. Mild dilation of the renal pelvis. Marked dilation of the calyces. Adjacent perinephric fat stranding with the appearance of xanthogranulomatous pyelonephritis. 2 mm calcification present within the lower pole of the right kidney which may lie within a calyceal diverticulum. ER physician consulted Urology and pt was taken to the OR for cystoscopy and left ureteral stent placement. At bedside, pt is in NAD. 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 Urology is following. Continue merrem and f/u urine cx. Heart catheter is in place. Microcytic anemia with thrombocytosis: Will monitor H/H. Hgb is 8. Diabetes: Will continue accuchek, SSI and ADA diet. Bipolar disorder/ ADHD/ Autism: Continue home med and supportive care Hyponatremia: Na is 132. Will continue IVF and trend Na level DVT ppx: SCD <Delma Rahman - Last Filed: 08/15/23 21:47>
[2023-08-15 15:42] LABS: Percent Reticulocyte Count 1.92 % (0.4-2.05); RBC Red Blood Cell Count 3.46 M/uL (4.33-5.43)
[2023-08-15] MEDS: Ringers Lactate 1,000 ML IV ONE (16:30)
[2023-08-15 16:42] LABS: Ferritin 658.9 ng/mL (26-388); Uric Acid 3.6 mg/dL (3.5-7.2)
--- NOTE | 2023-08-15 16:42 | P.CNS ---
Date of Consult: 08/15/23 Reason for Consult: Suspected xanthogranulomatous pyelonephritis Requesting Physician: Derrick Bess Chief Complaint: Malaise History of Present Illness: 37-year-old gentleman with DM 2, hypertension, hypercholesterolemia, and morbid obesity presented to the emergency department with generalized malaise and a headache. The malaise had been present for likely the last 2 months, and he acknowledged some occasional sporadic chills/rigors. He denied any known fevers, nausea or vomiting, and he denied any particular flank pain. He acknowledges the presence of some dysuria and cloudy urine. Past surgical history: Lap cholecystectomy Allergies to Claritin Family history: Noncontributory Social history: Active smoker, now uses a vape, for total of 11 years Examination: Patient in no acute distress Alert, awake, oriented x 3 No dyspnea or sign of respiratory distress Pulse 2+ radial and mildly tachycardic No cervical/supraclavicular adenopathy or thyromegaly Abdomen soft, obese, nontender No lower extremity edema or Homans' sign noted 08/15/2023 laboratory analyses: Creatinine 1.30, WBC 17.4, hemoglobin 8.0, platelets 830, UA micro 2+ leukocyte Estrace, greater than 50 RBCs per hpf, greater than 50 WBCs per hpf, no bacteria seen 08/15/2023 CT abdomen pelvis with IV contrast: Findings: 22 mm calculus within the left renal pelvis. Mild dilation of the renal pelvis. Marked dilation of the calyces. Adjacent perinephric fat stranding with the appearance of xanthogranulomatous pyelonephritis. 2 mm calcification present within the lower pole of the right kidney which may lie within a calyceal diverticulum. Other organs unremarkable. Status post cholecystectomy. Assessment and recommendation: 37-year-old gentleman with DM 2, hypertension, hypercholesterolemia, and morbid obesity nontoxic with the appearance of a left XGP kidney. -I reviewed the images in detail, and given the chronic caliectasis observed associated with the renal pelvic calculus, I agree that this had the signs of early xanthogranulomatous pyelonephritis, though not nearly in the late/severe phase. -I counseled the patient that his malaise is likely secondary to potential infection associated with a chronically obstructed left renal unit associated with what is likely a ball valving kidney stone that may also harbor infection. I explained that xanthogranulomatous pyelonephritis can be a rapidly progressive necrotizing infection that could require nephrectomy. To try to stave off subsequent deterioration and need for nephrectomy, I recommended, since he was otherwise clinically stable, that we proceed with an attempt at left ureteral stent placement along with urethral Heart catheterization, to decompress his kidney and allow resolution of any infection present. He agreed. -Cystoscopy with left retrograde pyelography and left ureteral stent placement followed by Heart catheter placement was discussed in detail. Risks of the procedure were discussed to include urethral stricture, complicating infection, or failure to achieve the desired result and need for percutaneous nephrostomy tube placement. Allergies loratadine [From Claritin] Allergy (Unverified 05/23/16 22:56) Unknown Home medications list reviewed: Yes - Past Medical/Surgical History Diabetic: Yes Physical Examination Temp Pulse Resp BP Pulse Ox 98.6 F 102 H 18 115/72 08/15/23 15:11 08/15/23 15:11 08/15/23 15:11 08/15/23 15:11 Laboratory Data (last 24 hrs) 08/15/23 08/15/23 08/15/23 10:10 10:10 10:10 WBC 17.40 H Hgb 8.0 L Hct 26.2 L Plt Count 830 H Sodium 132 L Potassium 4.2 BUN 11 Creatinine 1.30 Glucose 158 H Total Bilirubin 0.5 AST 13 L ALT 16 Alkaline Phosphatase 60 Lipase 30 - Problems (1) XGP (xanthogranulomatous pyelonephritis) Current Visit: Yes Status: Acute (2) Left nephrolithiasis Current Visit: Yes Status: Acute Critical Care: No Time Spent Managing Pts care (In Minutes): 35
--- NOTE | 2023-08-15 16:52 | P.OP ---
Date of Service: 08/15/23 Preoperative diagnosis: Left nephrolithiasis Xanthogranulomatous pyelonephritis Postoperative diagnoses: Same Principal procedures: Cystoscopy Left retrograde pyelography Left 7 Wallisian by 28 cm double-J ureteral stent placement Urethral Heart catheterization over a wire Indication for procedure: 37-year-old gentleman with DM 2, hypertension, hypercholesterolemia, and morbid obesity nontoxic with the appearance of a left XGP kidney. Procedure note: Patient was consented in the preoperative holding area before being transferred to the operative suite where general anesthesia was induced. He was given meropenem and Levaquin in the emergency department around 11:00 today. Pneumoboots were provided for DVT prophylaxis. He was placed in the lithotomy position, padded and secured to the table appropriately. His genitalia was prepped with Hibiclens and he was draped in standard fashion. The case was begun using a 22 Wallisian rigid cystoscope to traverse the urethra, but because of his morbid obesity and clear inflammation of the urethra, despite attempts to stretch the urethra and minimize folds in the mucosa, a flap was created in the mucosa superficially. I thus utilized a 5 Wallisian ureteral access catheter to disrupt that flap through the negative opening before advancing the cystoscope over the 5 Wallisian ureteral access catheter and completely disrupting the undesired flap created. I was then able to navigate with some difficulty because of the length required simply to traverse through the extended component of his perineal urethra, ultimately navigating through the prostatic urethra and entering his bladder. Upon entry into the bladder, significant cloudy urine with some cheesy material, consistent with comedonecrosis, was identified posteriorly. This was emanating from the left ureteral orifice and a very slow fashion. I thus cannulated the left ureteral orifice with the tip of the sensor wire and the 5 Wallisian ureteral access catheter. More of the comedonecrosis did emanate from within. Given the concern about complicating infection, instead of performing a retrograde study in this case, I advanced the sensor wire fluoroscopically up the ureter and putatively into the collecting system with a coil observed fluoroscopically. I then advanced a second 5 Wallisian ureteral access catheter alongside the wire into the proximal ureter before advancing the first 5 Wallisian ureteral access catheter over the wire into the collecting system. There, I removed the wire leaving the 5 Wallisian ureteral access catheter in place in the renal pelvis. Left retrograde pyelography: Using a 70: 30 mixture of Omnipaque and saline, contrast was injected via the lumen of the second 5 Wallisian ureteral access catheter, with which the wire had been removed. This did fill the renal pelvis and upper and midpole calyces, confirming the appropriate localization of the 5 Wallisian catheter and the wire. As a result, I passed the wire back into the collecting system and coiled it within the upper mid pole calyces. I remove the 5 Wallisian ureteral access catheter leaving the wire in place, and then passed a 7 Wallisian by 28 cm double-J ureteral stent over the wire into the collecting system. The renal pelvic calculus was visible fluoroscopically. I initially passed the stent into the upper pole calyx, but it would not coil in that location appropriately. As a result, I had to partially remove it and replaced the wire via the stent and ultimately manipulated until I was able to pass the stent into the mid pole calyx where I was able to generate a coil fluoroscopically and 1 cystoscopically within his bladder. His upper tract did decompressive more comedonecrosis as evidenced from within the stent lumen and around the stent out of the ureteral orifice. I thus placed the sensor wire via the cystoscope back into his bladder and remove the cystoscope. I then placed an 18 Wallisian [place] tip catheter over the wire successfully into his bladder with ease and I placed 15 cc of sterile water in the balloon. The catheter was allowed to decompress and was connected to a floor bag for drainage. He was then taken out of the lithotomy position, awakened from general anesthesia, transferred to a stretcher, and then transferred to the recovery room in good condition. Complications: None Discharge disposition: We will await the results of cultures and tailor's antimicrobials appropriately. He would likely benefit with at least 21 to 28 days of tissue penetrating antimicrobial to completely resolve the infection in the kidney. If the organism identified is a stone forming organism, like Proteus, after a 14 to 21-day treatment course, the patient should be kept on a sensitivity specific prophylactic antimicrobial until surgical therapy can be undertaken to manage the stones, which are the source of the infection contributing to the xanthogranulomatous pyelonephritis. The urethral Heart catheter may be removed once he begins to clinically improve with resolution of his SIRS and once the urine is no longer cloudy from the comedonecrosis.
[2023-08-15] MEDS: Meropenem 1,000 MG in NA CHLORIDE 0.9% 100 ML IV SCH (18:05)
[2023-08-15] MEDS: NA CHLORIDE 0.9% 1,000 ML IV SCH (18:06)
--- NOTE | 2023-08-15 18:10 | RAD REPORT ---
EXAM DESCRIPTION: RAD - Urethrocystogrphy Retrograde - 08/15/2023 4:33 pm CLINICAL HISTORY: CYSTO W STENT COMPARISON: None available. FINDINGS: Twenty-three Images were sent to PACS, documenting fluoroscopy use during cystourethrogram and left ureteral stent placement procedure. No radiologist was available for the procedure, nor lissy l any image interpretation he provided. Please refer to the procedural report for additional details. Fluoroscopy time: 58 seconds. IMPRESSION: Documentation of fluoroscopy utilization as above.
[2023-08-15 19:37] VITALS: BMI 30.2
--- NOTE | 2023-08-15 20:33 | P.CNS ---
Date of Consult: 08/15/23 Reason for Consult: CKD Requesting Physician: Delma Rahman Chief Complaint: pyelonephritis History of Present Illness: 37-year-old gentleman with DM 2, hypertension, hypercholesterolemia, and morbid obesity presented to the emergency department with generalized malaise and a headache. The malaise had been present for likely the last 2 months, and he acknowledged some occasional sporadic chills/rigors. He denied any known f blas, nausea or vomiting, and he denied any particular flank pain. He acknowledges the presence of some dysuria and cloudy urine. laboratory analyses: Creatinine 1.30, WBC 17.4, hemoglobin 8.0, platelets 830, UA micro 2+ leukocyte Estrace, greater than 50 RBCs per hpf, greater than 50 WBCs per hpf, no bacteria seen. CT abdomen pelvis with IV contrast: Findings: "22 mm calculus within the left renal pelvis. Mild dilation of the renal pelvis. Marked dilation of the calyces. Adjacent perinephric fat stranding with the appearance of xanthogranulomatous pyelonephritis. 2 mm calcification present within the lower pole of the right kidney which may lie within a calyceal diverticulum. Other organs unremarkable. Status post cholecystectomy." He will be admitted for IV antibiotics and consultation with Dr. Saini. [id number] 11:29 This 37 yrs old Male presents to ER via Ambulatory with complaints of nelia Headache, Abdominal Pain. 11:29 The patient complains of pain to the forehead. The patient describes the headache as nelia aching. Onset: The symptoms/episode began/occurred 2 day(s) ago. Associated signs and symptoms: Pertinent positives: dizziness, nausea. Severity of symptoms: At its worst the pain was mild, in the emergency department the pain is unchanged. Headache History: The patient has had previous headaches and this one is similar to previous episodes. The symptoms are alleviated by nothing. the symptoms are aggravated by nothing. The patient has not experienced similar symptoms in the past. Allergies loratadine [From Claritin] Allergy (Verified 08/15/23 19:49) Shortness of breath Home medications list reviewed: Yes Home Medications: Lurasidone HCl [Latuda] 40 mg PO DAILY 08/15/23 Metformin HCl 1 tab PO BID 08/15/23 Sertraline [Zoloft*] 100 mg PO DAILY 08/15/23 - Past Medical/Surgical History Diabetic: Yes -: DM -: ADHD -: Bipolar -: Autism -: Cholecystectomy Psychosocial/ Personal History: Pt lives alone. Was adopted. He knows his biological Brother but neither know much re: biological PMH - Social History Smoking Status: Former smoker Alcohol use: No CD- Drugs: No Caffeine use: Yes Place of Residence: Home Review of Systems 10-point ROS is otherwise unremarkable General: Weakness, Malaise Genitourinary: Dysuria Physical Examination Temp Pulse Resp BP Pulse Ox 98.6 F 102 H 18 115/72 100 08/15/23 18:22 08/15/23 18:22 08/15/23 18:22 08/15/23 18:22 08/15/23 16:00 General: In no apparent distress, Oriented x3, Cooperative HEENT: Atraumatic Neck: Supple Respiratory: Normal air movement Cardiovascular: No edema, Regular rate/rhythm Gastrointestinal: Soft and benign, Non-distended Musculoskeletal: No clubbing Integumentary: No rashes, No cyanosis Neurological: Normal speech Urinary: Heart catheter Laboratory Data (last 24 hrs) 08/15/23 08/15/23 08/15/23 10:10 10:10 10:10 WBC Hgb Hct Plt Count Sodium 132 L Potassium 4.2 BUN 11 Creatinine 1.30 Glucose 158 H Uric Acid 3.6 Total Bilirubin 0.5 AST 13 L ALT 16 Alkaline Phosphatase 60 Lipase 30 08/15/23 10:10 WBC 17.40 H Hgb 8.0 L Hct 26.2 L Plt Count 830 H Sodium Potassium BUN Creatinine Glucose Uric Acid Total Bilirubin AST ALT Alkaline Phosphatase Lipase Imagings Data: [id number] EXAM DESCRIPTION: CT - Abdomen Pelvis W Contrast - 08/15/2023 10:17 am CLINICAL HISTORY: Abdominal pain COMPARISON: none. TECHNIQUE: Computed axial tomography of the abdomen pelvis was obtained. 100 cc Isovue-300 was administered intravenously. Oral contrast was not requested which limits evaluation of bowel and appendix All CT scans are performed using dose optimization technique as appropriate and may include automated exposure control or mA/KV adjustment according to patient size. FINDINGS: A staghorn calculus 22 millimeter left renal pelvis. Mild dilatation of the renal pelvis. Marked dilatation of the calices. The left kidney is enlarged with stranding in the adjacent fat. This has the appearance of the xant hogranulomatous pyelonephritis. 2 millimeter calcification is present within the lower pole of the right kidney. It may lie within a calyceal diverticulum. Cholecystectomy Liver, spleen, pancreas and adrenals unremarkable No evidence of diverticulitis IMPRESSION: Left xanthogranulomatous pyelonephritis Conclusions/Impression: CKD II with Proteinuria -No NSAIDs -Continue IVF Hyponatremia -Continue IVF Left Staghorn Calculus Left Xanthogranulomatous Pyelonephritis -Continue Abx -Follow up with Urology DM II with CKD -RISS prn Hypoalbuminemia -Encourage nutrition Anemia in chronic illness Iron Deficiency -Monitor H&H Hospitalist, ER and Urology notes reviewed Thank you kindly for the consultation
[2023-08-15] MEDS: Mupirocin NASAL 2 APPL/1 GM TUBE NAS SCH (21:41)
[2023-08-15] MEDS: HEPARIN 5000 UNIT/ML 1 ML VIAL SQ SCH (21:42)
[2023-08-15] MEDS: PHENAZOPYRIDINE 100MG TAB PO PRN (23:20)
[2023-08-16 03:53] LABS: PTT, Activated Partial Thromb 32.6 SECONDS (24.3-36.9); Protime INR 1.47
[2023-08-16 03:54] LABS: Absolute Lymphocytes (CBC) 1.1 K/uL (0.7-4.9); Absolute Monocytes 0.7 K/uL (0.1-1.3); Absolute Neutrophil 10.7 K/uL (1.8-8.0); Basophils % 0.3 % (0-1.3); Eosinophils % 0.2 % (0-4.4); Hematocrit 21.6 % (39.6-49.0); Hemoglobin 6.9 g/dL (13.6-17.9); Lymphocytes % 9.2 % (15.3-44.8); MCH 23.8 pg (27.0-35.0); MCHC 31.9 g/dL (32.0-36.0); MCV 74.5 fL (80-100); Monocytes % 5.2 % (3.3-12.3); Neutrophils % 85.1 % (41.7-73.7); Nucleated Red Blood Cells % 0.1 % (0-0); Platelets 584 thou/uL (152-406); RBC Red Blood Cell Count 2.89 M/uL (4.33-5.43); Red Cell Distribution Width 16.2 % (12.1-15.2)
[2023-08-16 04:02] LABS: Albumin 1.8 g/dL (3.4-5.0); Albumin/Globulin Ratio 0.3 (1.1-1.8); Alkaline Phosphatase 46 U/L (45-117); Anion Gap 7.1 mEq/L (5.0-15.0); BUN Blood Urea Nitrogen 12 mg/dL (7-18); Bicarbonate 25 mEq/L (21-32); Bilirubin Total 0.2 mg/dL (0.2-1.0); Glomerular Filtration Rate 66 ml/min (=/>90); Glucose Level 181 mg/dL (74-106); HDL Cholesterol 18 mg/dL (40-60); LDL Cholesterol, Calculated 44 mg/dL (<130); LDL Cholesterol,Calc NonReport 44; Magnesium 1.9 mg/dL (1.6-2.4); Phosphorus 2.6 mg/dL (2.5-4.9); Potassium 4.1 mEq/L (3.5-5.1); Protein, Total 7.8 g/dL (6.4-8.2); Sodium Level 133 mEq/L (136-145)
[2023-08-16 04:09] LABS: ALT/SGPT < 14 U/L (16-61); AST/SGOT < 10 U/L (15-37)
[2023-08-16 04:42] LABS: Band Neutrophils 9 % (0-1); Differential Total Cells Count 100; Lymphocytes 11 % (15-42); Monocytes 3 % (0-10); Reactive Lymphocytes 2 %; Segmented Neutrophils 74 % (40-80)
[2023-08-16 04:43] LABS: Blood Morphology Comment NOT SEEN (NOT SEEN); Platelet Estimate ADEQ
[2023-08-16] MEDS ORDERED: CODEINE 30MG/APAP 300MG TAB PO PRN (04:51)
[2023-08-16] MEDS: MORPHINE 4 MG/ML SYR IV ONE (04:56)
--- NOTE | 2023-08-16 09:19 | P.PN ---
Subjective Date of Service: 08/16/23 Chief Complaint: pyelonephritis Subjective: No new changes <Angela Zavala Les - Last Filed: 08/16/23 09:14> Date of Service: 08/16/23 <Delma Rahman - Last Filed: 08/16/23 11:59> Review of Systems 10-point ROS is otherwise unremarkable General: Weakness, Malaise <Angela Zavala Les - Last Filed: 08/16/23 09:14> Physical Examination - Vital Signs Temperature: 97.8 F Blood Pressure: 126/68 Pulse: 103 Respirations: 14 Pulse Ox (%): 97 - Physical Exam General: Alert, In no apparent distress, Oriented x3 HEENT: Atraumatic, Normocephalic Neck: Supple Respiratory: Clear to auscultation bilaterally, Normal air movement Cardiovascular: Normal pulses, Regular rate/rhythm Capillary refill: <2 Seconds Gastrointestinal: Soft and benign Musculoskeletal: No clubbing, No swelling Integumentary: No rashes, Other (pallor) Neurological: Normal speech, Normal tone Lymphatics: No axilla or inguinal lymphadenopathy External genitalia: Deferred Rectal: Deferred - Studies Laboratory Data (last 24 hrs) 08/15/23 08/15/23 08/15/23 10:10 10:10 10:10 WBC Hgb Hct Plt Count Sodium 132 L Potassium 4.2 BUN 11 Creatinine 1.30 Glucose 158 H Uric Acid 3.6 Total Bilirubin 0.5 AST 13 L ALT 16 Alkaline Phosphatase 60 Lipase 30 08/15/23 10:10 WBC 17.40 H Hgb 8.0 L Hct 26.2 L Plt Count 830 H Sodium Potassium BUN Creatinine Glucose Uric Acid Total Bilirubin AST ALT Alkaline Phosphatase Lipase <Angela Zavala Les - Last Filed: 08/16/23 09:14> - Studies Laboratory Data (last 24 hrs) 08/15/23 08/15/23 10:10 10:10 Uric Acid 3.6 Lipase 30 <Delma Rahman - Last Filed: 08/16/23 11:59> Assessment And Plan - Plan Assessment 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 Saini) and Neprology (Dr. Bee) Gentle hydration UA/UC Broadspectrum IV abx (Merrem) and following cultures NPO - advanced to low salt diet post stent placement Pt currently denies pain - pain management prn S/P renal stent, fdc abx therapy. Will order PICC. FLY/anemia of chronic disease iron - 17 IV iron x 4 doses Hemoglobin 6.9 this am, 2 units PRBCs ordered VRE prophylaxis: heparin 5000u sc q 8h <Angela Zavala - Last Filed: 08/16/23 09:14> - Plan Pt seen and examined. I agree with the note by the [facility]. Pt has a parikh catheter in place. No hematuria. Hgb is 6.9. Will give 2 units of blood and iron infusion. Pt was advised to lose weight. Urology is following. Continue merrem. Continue IVF for hyponatremia. <Delma Rahman - Last Filed: 08/16/23 11:59>
[2023-08-16] MEDS: SOD FERRIC GLUC COMPLX/SUCROSE 125 MG in NA CHLORIDE 0.9% 100 ML IV SCH (10:27)
[2023-08-16] MEDS: NA CHLORIDE 0.9% 250 ML ONE (11:49)
--- NOTE | 2023-08-16 16:57 | CON ---
Date of Consultation: 08/16/2023 Reason For Consultation: Elevated BUN and creatinine, fluid management. History Of Present Illness: This is a 37-year-old gentleman with significant past medical history of diabetes complicated with neuropathy, hypertension, hyperlipidemia, morbidly obese. The patient had known to have chronic kidney disease, follow up with Dr. Lim in the office with the baseline creati nine of 1.2 and GFR of 71. Patient apparently been sick on and off since March. Because of not im provement, found to have UTI with leukocytosis and found to have done CT with contrast showed kidney stone with 22 mm on the left pelvis with hydronephrosis. The patient was admitted. The patient was started on IV hydration. Kidney function back to baseline. The patient denied taking any nonsteroid al. Past Medical History: Includes: 1.Hypertension. 2.Chronic kidney disease, baseline creatinine 1.3 with GFR mid 50. 3.Diabetes complicated with neuropathy. 4.Hyperlipidemia. 5.Obesity. Allergies: TO LORATADINE. Home Medications: Include lurasidone, metformin, Zoloft. Past Surgical History: Include stent placement, cholecystectomy. Social History: Ex-smoker. Denied alcohol. Denied drugs abuse. Review of Systems: Head and Neck: No red eye. No ear pain. GI: Has nausea and decreased intake. : Has polyuria. Has dysuria. QUALITY SYSTEMS MANAGER: Not applicable. Respiratory: No shortness of breath. Cardiovascular: No chest pain. Endocrine: No polydipsia. Skin: No rash. Neuro: Has neuropathy. Musculoskeletal: Generalized fatigue. Physical Examination: Vital Signs: When I saw the patient, blood pressure of 117/65, pulse of 97, afebrile. Chest: Clear to auscultation. Heart: S1, S2. Regular. Abdomen: Soft, nontender, obese. Could not appreciate any organomegaly. Extremities: No edema. Neurologic: Alert. No focality. Laboratory Data: WBC 12.5, hemoglobin 6.9, sodium 133, potassium 4.1, bicarb 25, BUN 12, creatinine 1.4. GFR of 66, calcium 8.1. The patient had serum protein electrophoresis before, increase in gamm a. PC ratio 0.3. Current Medications: The patient on, include IV iron, meropenem, mupirocin. Assessment And Plan: 1.Acute kidney injury secondary to prerenal superimposed with toxic ATN, secondary to urinary tract infection, on the recovery. I am going to continue aggressive hydration and we will monitor. 2.Proteinuria mostly secondary to diabetes. The patient had a workup before, I am going to go ahead and follow up. 3.Hypertension, currently blood pressure on the lower side. Keep holding any SEDRICK inhibitor or ARB. 4.Urinary tract infection complicated pyelonephritis with obstructive uropathy, status post stenting . We will follow up with Urology. Continue hydration. 5.Iron-deficiency anemia. Continue IV iron. 6.Kidney stone, status post stenting as above. Thank you, Dr. Rahman, for allowing us to participate in the care of your patient. HEIDI Voice ID: [id number] Report ID: [id number]
[2023-08-16 17:29] LABS: Specific Gravity 1.011 (1.005-1.030); Sqamous Epithelial None Seen /HPF (None Seen); Urine Bacteria 20-50 /HPF (<20); Urine Bilirubin NEGATIVE (Negative); Urine Blood 1+ (Negative); Urine Clarity Extremely Turbid (Clear); Urine Color Yellow (Yellow); Urine Culture Reflex Order REFLEXED; Urine Glucose NEGATIVE (Negative); Urine Ketones NEGATIVE (Negative); Urine Microscopic Reflex YN ORDER UMIC; Urine Nitrite NEGATIVE (Negative); Urine Protein TRACE (Negative); Urine RBC 21-50 /HPF (None Seen); Urine Urobilinogen Normal (Normal); Urine WBC >50 /HPF (<5); Urine WBC Clump Many /HPF (None Seen)
--- NOTE | 2023-08-16 21:51 | P.PN ---
Date of Service: 08/16/23 Vital Signs Temp Pulse Resp BP Pulse Ox 97.9 F 96 H 16 139/78 96 08/16/23 16:00 08/16/23 16:00 08/16/23 16:00 08/16/23 16:00 08/16/23 16:00 Medications Acetaminophen/Codeine Phosphate (Codeine 30mg/Apap 300mg Tab) 1 tab PO Q4H PRN PRN Reason: Pain scale 2-4 (Mild) Heparin Sodium (Porcine) (Heparin 5000 Unit/Ml 1 Ml Vial) 5,000 unit SQ Q8HR [facility] Last Admin: 08/16/23 17:00 Dose: Not Given Meropenem 1,000 mg/ Sodium (Chloride) 100 mls @ 200 mls/hr IV Q8HR [facility] Last Admin: 08/16/23 18:11 Dose: 100 mls Sodium Chloride (Ns 1000 Ml Ivbag) 1,000 mls @ 150 mls/hr IV .Q6H40M [facility] Last Admin: 08/16/23 18:12 Dose: 1,000 mls Ferric Sodium Gluconate Complex 125 mg/ Sodium Chloride 110 mls @ 100 mls/hr IV DAILY [facility] Stop: 08/19/23 10:05 Last Admin: 08/16/23 10:27 Dose: 110 mls Mupirocin (Mupirocin Nasal 2 Appl/1 Gm Tube) 1 appl ACE BID [facility] Stop: 08/20/23 09:01 Last Admin: 08/16/23 20:00 Dose: Not Given Phenazopyridine HCl (Phenazopyridine 100mg Tab) 100 mg PO TID PRN PRN Reason: BURNING Last Admin: 08/15/23 23:20 Dose: 100 mg Assessment/ Plan: Nephrology No dyspnea No chest pain Abdominal pain and malaise No acute events overnight Vitals, medications, blood work and imaging reviewed in the chart General: In no apparent distress, Oriented x3, Cooperative HEENT: Atraumatic Neck: Supple Respiratory: Normal air movement Cardiovascular: No edema, Regular rate/rhythm Gastrointestinal: Soft and benign, Non-distended Musculoskeletal: No clubbing Integumentary: No rashes, No cyanosis Neurological: Normal speech Urinary: Heart catheter Laboratory Data (last 24 hrs) 08/15/23 08/15/23 08/15/23 10:10 10:10 10:10 WBC Hgb Hct Plt Count Sodium 132 L Potassium 4.2 BUN 11 Creatinine 1.30 Glucose 158 H Uric Acid 3.6 Total Bilirubin 0.5 AST 13 L ALT 16 Alkaline Phosphatase 60 Lipase 30 08/15/23 10:10 WBC 17.40 H Hgb 8.0 L Hct 26.2 L Plt Count 830 H Sodium Potassium BUN Creatinine Glucose Uric Acid Total Bilirubin AST ALT Alkaline Phosphatase Lipase Imagings Data: [id number] EXAM DESCRIPTION: CT - Abdomen Pelvis W Contrast - 08/15/2023 10:17 am CLINICAL HISTORY: Abdominal pain COMPARISON: none. TECHNIQUE: Computed axial tomography of the abdomen pelvis was obtained. 100 cc Isovue-300 was administered intravenously. Oral contrast was not requested which limits evaluation of bowel and appendix All CT scans are performed using dose optimization technique as appropriate and may include automated exposure control or mA/KV adjustment according to patient size. FINDINGS: A staghorn calculus 22 millimeter left renal pelvis. Mild dilatation of the renal pelvis. Marked dilatation of the calices. The left kidney is enlarged with stranding in the adjacent fat. This has the appearance of the xanthogranulomatous pyelonephritis. 2 millimeter calcification is present within the lower pole of the right kidney. It may lie within a calyceal diverticulum. Cholecystectomy Liver, spleen, pancreas and adrenals unremarkable No evidence of diverticulitis IMPRESSION: Left xanthogranulomatous pyelonephritis Conclusions/Impression: Stage I DUONG likely multifactorial CKD II with Proteinuria -No NSAIDs -Continue IVF Hyponatremia -Continue IVF with NS Left Staghorn Calculus Left Xanthogranulomatous Pyelonephritis -Continue Abx -S/P stenting -Follow up with Urology DM II with CKD -RISS prn Hypoalbuminemia -Encourage nutrition Anemia in chronic illness Iron Deficiency -Monitor H&H -Transfuse PRBC as ordered Case reviewed with hospitalist team
[2023-08-17 05:00] LABS: Absolute Eosinophils 0.1 K/uL (0-0.5); Absolute Lymphocytes (CBC) 1.6 K/uL (0.7-4.9); Absolute Monocytes 0.8 K/uL (0.1-1.3); Absolute Neutrophil 8.9 K/uL (1.8-8.0); Basophils % 0.3 % (0-1.3); Eosinophils % 0.8 % (0-4.4); Hematocrit 27.7 % (39.6-49.0); Hemoglobin 8.5 g/dL (13.6-17.9); MCH 24.1 pg (27.0-35.0); MCHC 30.8 g/dL (32.0-36.0); MCV 78.3 fL (80-100); MPV 7.2 fL (7.6-11.3); Monocytes % 6.9 % (3.3-12.3); Platelets 554 thou/uL (152-406); RBC Red Blood Cell Count 3.54 M/uL (4.33-5.43); Red Cell Distribution Width 17.5 % (12.1-15.2)
[2023-08-17 05:22] LABS: Albumin 1.9 g/dL (3.4-5.0); Albumin/Globulin Ratio 0.3 (1.1-1.8); Alkaline Phosphatase 47 U/L (45-117); Anion Gap 9.8 mEq/L (5.0-15.0); BUN Blood Urea Nitrogen 11 mg/dL (7-18); Bicarbonate 25 mEq/L (21-32); Bilirubin Total 0.4 mg/dL (0.2-1.0); Globulin 5.9 g/dL (2.3-3.5); Glomerular Filtration Rate 91 ml/min (=/>90); Glucose Level 105 mg/dL (74-106); Magnesium 2.1 mg/dL (1.6-2.4); Potassium 3.8 mEq/L (3.5-5.1); Protein, Total 7.8 g/dL (6.4-8.2); Sodium Level 136 mEq/L (136-145)
[2023-08-17 05:28] LABS: ALT/SGPT < 14 U/L (16-61); AST/SGOT < 10 U/L (15-37)
[2023-08-17] MEDS: POTASSIUM CL SA 10 MEQ TAB PO ONE (08:49)
--- NOTE | 2023-08-17 11:13 | P.PN ---
Subjective Date of Service: 08/17/23 Chief Complaint: pyelonephritis Pt is resting comfortably in a chair. He denies any chest pain or SOB. No hematuria. Pt received 2 units of blood yesterday and Hgb is 8.5. Noo ther complaints. Review of Systems General: Unremarkable Eyes: Unremarkable ENT: Unremarkable Respiratory: Unremarkable Cardiovascular: Unremarkable Gastrointestinal: Unremarkable Genitourinary: Unremarkable Musculoskeletal: Unremarkable Integumentary: Unremarkable Neurological: Unremarkable Lymphatics: Unremarkable Physical Examination - Vital Signs Temperature: 97 F Blood Pressure: 115/76 Pulse: 97 Respirations: 16 Pulse Ox (%): 98 - Physical Exam General: Alert, In no apparent distress, Oriented x3, Obese HEENT: Atraumatic, Normocephalic, PERRLA Neck: Supple, 2+ carotid pulse no bruit, JVD not distended Respiratory: Clear to auscultation bilaterally, Normal air movement Cardiovascular: No edema, Normal pulses, Regular rate/rhythm, Normal S1 S2 Capillary refill: <2 Seconds Gastrointestinal: Normal bowel sounds, Soft and benign, Non-distended Musculoskeletal: No clubbing, No swelling, No contractures Integumentary: No rashes, No breakdown, No significant lesion Neurological: Normal speech, Normal strength at 5/5 x4 extr, Normal tone, Sensation intact Lymphatics: No axilla or inguinal lymphadenopathy Assessment And Plan - Plan 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 Will continue merrem and f/u urine cx. Will place PICC line. Microcytic anemia with thrombocytosis: Hgb is 8.5 s/p 2 units of blood. Monitor H/H. Will also give iron infusion for iron deficiency. Diabetes: Will continue accuchek, SSI and ADA diet. Bipolar disorder with ADHD/Autism: Continue supportive care Morbid obesity: Pt was advised to lose weight. Hyponatremia: Na is 136. Will monitor NA level DVT ppx: heparin Dispo: Pending hospital course.
[2023-08-17] MEDS: Mupirocin NASAL 2 APPL/1 GM TUBE NAS SCH (21:00)
--- NOTE | 2023-08-17 21:34 | P.PN ---
Date of Service: 08/17/23 Vital Signs Temp Pulse Resp BP Pulse Ox 97.2 F 97 H 16 124/70 97 08/17/23 17:00 08/17/23 17:00 08/17/23 17:00 08/17/23 17:00 08/17/23 17:00 Medications Acetaminophen/Codeine Phosphate (Codeine 30mg/Apap 300mg Tab) 1 tab PO Q4H PRN PRN Reason: Pain scale 2-4 (Mild) Heparin Sodium (Porcine) (Heparin 5000 Unit/Ml 1 Ml Vial) 5,000 unit SQ Q8HR [facility] Last Admin: 08/17/23 16:31 Dose: 5,000 unit Meropenem 1,000 mg/ Sodium (Chloride) 100 mls @ 200 mls/hr IV Q8HR [facility] Last Admin: 08/17/23 16:29 Dose: 100 mls Sodium Chloride (Ns 1000 Ml Ivbag) 1,000 mls @ 150 mls/hr IV .Q6H40M [facility] Last Admin: 08/17/23 16:30 Dose: 1,000 mls Ferric Sodium Gluconate Complex 125 mg/ Sodium Chloride 110 mls @ 100 mls/hr IV DAILY [facility] Stop: 08/19/23 10:05 Last Admin: 08/17/23 09:51 Dose: 110 mls Mupirocin (Mupirocin Nasal 2 Appl/1 Gm Tube) 1 appl ACE BID [facility] Stop: 08/20/23 09:01 Last Admin: 08/17/23 21:00 Dose: Not Given Mupirocin (Mupirocin Nasal 2 Appl/1 Gm Tube) 1 appl ACE BID [facility] Stop: 08/22/23 09:01 Last Admin: 08/17/23 21:00 Dose: Not Given Phenazopyridine HCl (Phenazopyridine 100mg Tab) 100 mg PO TID PRN PRN Reason: BURNING Last Admin: 08/15/23 23:20 Dose: 100 mg Microbiology Results 08/15/23 10:09 Clean Catch Urine [place] Count - Preliminary BETWEEN 10,000 & 100,000 CFU/ML 08/15/23 10:09 Clean Catch Urine - Preliminary MIXED SHILOH. Assessment/ Plan: Nephrology No dyspnea No chest pain Feeling better No acute events overnight Vitals, medications, blood work and imaging reviewed in the chart General: In no apparent distress, Oriented x3, Cooperative HEENT: Atraumatic Neck: Supple Respiratory: Normal air movement Cardiovascular: No edema, Regular rate/rhythm Gastrointestinal: Soft and benign, Non-distended Musculoskeletal: No clubbing Integumentary: No rashes, No cyanosis Neurological: Normal speech Urinary: Heart catheter Laboratory Data (last 24 hrs) 08/15/23 08/15/23 08/15/23 10:10 10:10 10:10 WBC Hgb Hct Plt Count Sodium 132 L Potassium 4.2 BUN 11 Creatinine 1.30 Glucose 158 H Uric Acid 3.6 Total Bilirubin 0.5 AST 13 L ALT 16 Alkaline Phosphatase 60 Lipase 30 08/15/23 10:10 WBC 17.40 H Hgb 8.0 L Hct 26.2 L Plt Count 830 H Sodium Potassium BUN Creatinine Glucose Uric Acid Total Bilirubin AST ALT Alkaline Phosphatase Lipase Imagings Data: [id number] EXAM DESCRIPTION: CT - Abdomen Pelvis W Contrast - 08/15/2023 10:17 am CLINICAL HISTORY: Abdominal pain COMPARISON: none. TECHNIQUE: Computed axial tomography of the abdomen pelvis was obtained. 100 cc Isovue-300 was administered intravenously. Oral contrast was not requested which limits evaluation of bowel and appendix All CT scans are performed using dose optimization technique as appropriate and may include automated exposure control or mA/KV adjustment according to patient size. FINDINGS: A staghorn calculus 22 millimeter left renal pelvis. Mild dilatation of the renal pelvis. Marked dilatation of the calices. The left kidney is enlarged with stranding in the adjacent fat. This has the appearance of the xanthogranulomatous pyelonephritis. 2 millimeter calcification is present within the lower pole of the right kidney. It may lie within a calyceal diverticulum. Cholecystectomy Liver, spleen, pancreas and adrenals unremarkable No evidence of diverticulitis IMPRESSION: Left xanthogranulomatous pyelonephritis Conclusions/Impression: Stage I DUONG likely multifactorial CKD II with Proteinuria -No NSAIDs -Continue IVF Hyponatremia -Continue IVF with NS Left Staghorn Calculus Left Xanthogranulomatous Pyelonephritis -Continue Abx -S/P stenting -Follow up with Urology DM II with CKD -RISS prn Hypoalbuminemia -Encourage nutrition Anemia in chronic illness Iron Deficiency -Monitor H&H -Transfuse PRBC as ordered Case reviewed with hospitalist team
[2023-08-18 05:12] LABS: ALT/SGPT < 14 U/L (16-61); AST/SGOT < 10 U/L (15-37); Albumin 2.1 g/dL (3.4-5.0); Albumin/Globulin Ratio 0.3 (1.1-1.8); Alkaline Phosphatase 53 U/L (45-117); Anion Gap 10.1 mEq/L (5.0-15.0); BUN Blood Urea Nitrogen 11 mg/dL (7-18); Bicarbonate 24 mEq/L (21-32); Bilirubin Total 0.3 mg/dL (0.2-1.0); Globulin 6.4 g/dL (2.3-3.5); Glomerular Filtration Rate 96 ml/min (=/>90); Glucose Level 112 mg/dL (74-106); Magnesium 1.9 mg/dL (1.6-2.4); Potassium 4.1 mEq/L (3.5-5.1); Protein, Total 8.5 g/dL (6.4-8.2); Sodium Level 135 mEq/L (136-145)
[2023-08-18 06:35] LABS: Absolute Basophils 0.1 K/uL (0-0.5); Absolute Eosinophils 0.1 K/uL (0-0.5); Absolute Lymphocytes (CBC) 1.4 K/uL (0.7-4.9); Absolute Monocytes 0.7 K/uL (0.1-1.3); Basophils % 0.6 % (0-1.3); Eosinophils % 0.6 % (0-4.4); Hematocrit 29.6 % (39.6-49.0); Hemoglobin 9.1 g/dL (13.6-17.9); Lymphocytes % 11.7 % (15.3-44.8); MCH 24.1 pg (27.0-35.0); MCHC 30.9 g/dL (32.0-36.0); MCV 78.3 fL (80-100); MPV 6.9 fL (7.6-11.3); Monocytes % 5.4 % (3.3-12.3); Neutrophils % 81.7 % (41.7-73.7); Platelets 561 thou/uL (152-406); RBC Red Blood Cell Count 3.78 M/uL (4.33-5.43)
--- NOTE | 2023-08-18 12:10 | P.PN ---
Nephrology note (S) Pt denies abd pain or N/V Vitals, medications, blood work and imaging reviewed in the chart General: In no apparent distress, Oriented x3, Cooperative HEENT: Atraumatic Neck: Supple Respiratory: Normal air movement Cardiovascular: No edema, Regular rate/rhythm Gastrointestinal: Soft and benign, Non-distended, parikh remains in place Musculoskeletal: No clubbing Integumentary: No rashes, No cyanosis Neurological: Normal speech Imagings Data: [id number] EXAM DESCRIPTION: CT - Abdomen Pelvis W Contrast - 08/15/2023 10:17 am CLINICAL HISTORY: Abdominal pain COMPARISON: none. TECHNIQUE: Computed axial tomography of the abdomen pelvis was obtained. 100 cc Isovue-300 was administered intravenously. Oral contrast was not requested which limits evaluation of bowel and appendix All CT scans are performed using dose optimization technique as appropriate and may include automated exposure control or mA/KV adjustment according to patient size. FINDINGS: A staghorn calculus 22 millimeter left renal pelvis. Mild dilatation of the renal pelvis. Marked dilatation of the calices. The left kidney is enlarged with stranding in the adjacent fat. This has the appearance of the xanthogranulomatous pyelonephritis. 2 millimeter calcification is present within the lower pole of the right kidney. It may lie within a calyceal diverticulum. Cholecystectomy Liver, spleen, pancreas and adrenals unremarkable No evidence of diverticulitis IMPRESSION: Left xanthogranulomatous pyelonephritis Conclusions/Impression: Stage I DUONG likely multifactorial -Stable renal function, lower IVF rate Left Staghorn Calculus Left Xanthogranulomatous Pyelonephritis -Continue Abx, cultures neg thus far -S/P stenting -Follow up with Urology for OP definitive stone management and stent removal -Parikh removal per Urology
[2023-08-18] MEDS ORDERED: NA CHLORIDE 0.9% 1,000 ML IV SCH (12:11)
--- NOTE | 2023-08-18 12:19 | P.PN ---
Subjective Date of Service: 08/18/23 Chief Complaint: pyelonephritis Pt is resting comfortably in bed. He denies any chest pain or SOB. No hematuria. HE has a parikh catheter in place. Waiting for PICC line placement. Pt will dc with merrem 1gm iv BID for 3 weeks. No other complaints. Review of Systems General: Unremarkable Eyes: Unremarkable ENT: Unremarkable Respiratory: Unremarkable Cardiovascular: Unremarkable Gastrointestinal: Unremarkable Genitourinary: Unremarkable Musculoskeletal: Unremarkable Integumentary: Unremarkable Neurological: Unremarkable Lymphatics: Unremarkable Physical Examination - Vital Signs Temperature: 97.6 F Blood Pressure: 138/73 Pulse: 93 Respirations: 16 Pulse Ox (%): 94 - Physical Exam General: Alert, In no apparent distress, Oriented x3, Obese HEENT: Atraumatic, Normocephalic Neck: Supple, 2+ carotid pulse no bruit Respiratory: Clear to auscultation bilaterally, Normal air movement Cardiovascular: No edema, Normal pulses, Regular rate/rhythm, Normal S1 S2 Capillary refill: <2 Seconds Gastrointestinal: Normal bowel sounds, Soft and benign, Non-distended Musculoskeletal: No clubbing, No swelling Integumentary: No rashes, No breakdown, No significant lesion Neurological: Normal speech, Normal strength at 5/5 x4 extr, Normal tone, Sensation intact Lymphatics: No axilla or inguinal lymphadenopathy - Studies Microbiology Data (last 24 hrs): 08/15/23 10:09 Clean Catch Urine [place] Count - Final BETWEEN 10,000 & 100,000 CFU/ML 08/15/23 10:09 Clean Catch Urine - Final MIXED SHILOH. 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 Will continue merrem and f/u urine cx. Will place PICC line. Pt will need to complete 3 weeks of iv merrem at home. Microcytic anemia with thrombocytosis: Hgb is 9.1 <- 8.5 s/p 2 units of blood. Monitor H/H. Will also give iron infusion for iron deficiency. Diabetes: Will continue accuchek, SSI and ADA diet. Bipolar disorder with ADHD/Autism: Continue supportive care Morbid obesity: Pt was advised to lose weight. Hyponatremia: Na is 135. Will monitor NA level DVT ppx: heparin Dispo: Pending hospital course.
[2023-08-18] MEDS: NA CHLORIDE 0.9% 1,000 ML IV SCH (16:18)
--- NOTE | 2023-08-18 17:48 | P.DS ---
Admission Date: 08/15/23 Discharge Date: 08/19/23 Reason for Admission: xanthogranulomatous pyelonephritis Consultations: Dr. Saini - Urology Dr. Welch - Nephrology Procedures: Ureteral and renal stent placement PICC line Brief History of Present Illness: 37-year-old gentleman with DM 2, hypertension, hypercholesterolemia, and morbid obesity presented to the emergency department with generalized malaise and a headache. The malaise had been present for likely the last 2 months, and he acknowledged some occasional sporadic chills/rigors. He denied any known fevers, nausea or vomiting, and he denied any particular flank pain. He acknowledges the presence of some dysuria and cloudy urine. laboratory analyses: Creatinine 1.30, WBC 17.4, hemoglobin 8.0, platelets 830, UA micro 2+ leukocyte Estrace, greater than 50 RBCs per hpf, greater than 50 WBCs per hpf, no bacteria seen. CT abdomen pelvis with IV contrast: Findings: "22 mm calculus within the left renal pelvis. Mild dilation of the renal pelvis. Marked dilation of the calyces. Adjacent perinephric fat stranding with the appearance of xanthogranulomatous pyelonephritis. 2 mm calcification present within the lower pole of the right kidney which may lie within a calyceal diverticulum. Other organs unremarkable. Status post cholecystectomy." He will be admitted for IV antibiotics and consultation with Dr. Saini. Hospital Course: Mr. Ni did well over the course of his admission. Ureteral and renal stones were placed by Dr. Saini. Secondary to the increased risk for renal disease he was seen by Dr. Bee. He received IV antibiotics, IV iron, and a unit of blood over the course of his admission. He will be discharged to follow-up with Dr. Saini and Dr. Bee on IV Merrem 1g twice daily x 3 weeks via PICC line. Home health has been arranged to help with IV therapy. <Angela Zavala - Last Filed: 08/19/23 08:36> Admission Date: 08/15/23 Discharge Date: 08/19/23 Hospital Course: Pt seen and examined. I agree with the note by the FABRIC NORMALIZER. Complete 3 weeks of merrem 1mg iv BID at home Follow up with Urologist, Production Shift Supervisor and PCP in clinic within 2 weeks. Ok to discharge pt. <Delma Rahman - Last Filed: 08/19/23 12:03> Disposition: DC HOME/HOME HEALTH CARE Discharge Condition: GOOD Vital Signs/Physical Exam: Temp Pulse Resp BP Pulse Ox 98 F 89 17 130/64 95 08/18/23 16:00 08/18/23 16:00 08/18/23 16:00 08/18/23 16:00 08/18/23 16:00 General: Alert, In no apparent distress, Oriented x3 HEENT: Atraumatic, Normocephalic Neck: Supple Respiratory: Normal air movement Cardiovascular: Normal pulses, Regular rate/rhythm Capillary refill: <2 Seconds Gastrointestinal: Soft and benign Musculoskeletal: No clubbing Integumentary: No rashes Neurological: Normal gait, Normal speech, Normal tone, Normal affect Lymphatics: No axilla or inguinal lymphadenopathy External genitalia: Deferred Rectal: Deferred Laboratory Data at Discharge: WBC 12.30 thou/uL (4.3-10.9) H 08/18/23 05:52 Hgb 9.1 g/dL (13.6-17.9) L 08/18/23 05:52 Hct 29.6 % (39.6-49.0) L 08/18/23 05:52 Plt Count 561 thou/uL (152-406) H 08/18/23 05:52 PT 16.0 SECONDS (9.5-12.5) H 08/16/23 02:50 INR 1.47 08/16/23 02:50 APTT 32.6 SECONDS (24.3-36.9) 08/16/23 02:50 Sodium 135 mEq/L (136-145) L 08/18/23 04:18 Potassium 4.1 mEq/L (3.5-5.1) 08/18/23 04:18 BUN 11 mg/dL (7-18) 08/18/23 04:18 Creatinine 1.04 mg/dL (0.70-1.30) 08/18/23 04:18 Glucose 112 mg/dL (74-106) H 08/18/23 04:18 Uric Acid 3.6 mg/dL (3.5-7.2) 08/15/23 10:10 Phosphorus 3.0 mg/dL (2.5-4.9) 08/18/23 04:18 Magnesium 1.9 mg/dL (1.6-2.4) 08/18/23 04:18 Total Bilirubin 0.3 mg/dL (0.2-1.0) 08/18/23 04:18 AST < 10 U/L (15-37) L 08/18/23 04:18 ALT < 14 U/L (16-61) L 08/18/23 04:18 Alkaline Phosphatase 53 U/L (45-117) 08/18/23 04:18 Triglycerides 108 mg/dL (<150) 08/16/23 02:50 Cholesterol 84 mg/dL (<200) 08/16/23 02:50 HDL Cholesterol 18 mg/dL (40-60) L 08/16/23 02:50 Cholesterol/HDL Ratio 4.67 08/16/23 02:50 Lipase 30 U/L (13-75) 08/15/23 10:10 <Zavala,Angela Les - Last Filed: 08/19/23 08:36> Vital Signs/Physical Exam: Temp Pulse Resp BP Pulse Ox 97.6 F 88 16 148/93 H 95 08/19/23 08:00 08/19/23 08:00 08/19/23 08:00 08/19/23 08:00 08/19/23 08:00 Laboratory Data at Discharge: WBC 12.30 thou/uL (4.3-10.9) H 08/18/23 05:52 Hgb 9.1 g/dL (13.6-17.9) L 08/18/23 05:52 Hct 29.6 % (39.6-49.0) L 08/18/23 05:52 Plt Count 561 thou/uL (152-406) H 08/18/23 05:52 PT 16.0 SECONDS (9.5-12.5) H 08/16/23 02:50 INR 1.47 08/16/23 02:50 APTT 32.6 SECONDS (24.3-36.9) 08/16/23 02:50 Sodium 135 mEq/L (136-145) L 08/18/23 04:18 Potassium 4.1 mEq/L (3.5-5.1) 08/18/23 04:18 BUN 11 mg/dL (7-18) 08/18/23 04:18 Creatinine 1.04 mg/dL (0.70-1.30) 08/18/23 04:18 Glucose 112 mg/dL (74-106) H 08/18/23 04:18 Uric Acid 3.6 mg/dL (3.5-7.2) 08/15/23 10:10 Phosphorus 3.0 mg/dL (2.5-4.9) 08/18/23 04:18 Magnesium 1.9 mg/dL (1.6-2.4) 08/18/23 04:18 Total Bilirubin 0.3 mg/dL (0.2-1.0) 08/18/23 04:18 AST < 10 U/L (15-37) L 08/18/23 04:18 ALT < 14 U/L (16-61) L 08/18/23 04:18 Alkaline Phosphatase 53 U/L (45-117) 08/18/23 04:18 Triglycerides 108 mg/dL (<150) 08/16/23 02:50 Cholesterol 84 mg/dL (<200) 08/16/23 02:50 HDL Cholesterol 18 mg/dL (40-60) L 08/16/23 02:50 Cholesterol/HDL Ratio 4.67 08/16/23 02:50 Lipase 30 U/L (13-75) 08/15/23 10:10 <Delma Rahman - Last Filed: 08/19/23 12:03> Diet: ADA Activity: Ad meenakshi <Zavala,Angela Les - Last Filed: 08/19/23 08:36> <Delma Rahman - Last Filed: 08/19/23 12:03> Home Medications: Lurasidone HCl [Latuda] 40 mg PO DAILY 08/15/23 Metformin HCl 1 tab PO BID 08/15/23 Sertraline [Zoloft*] 100 mg PO DAILY 08/15/23 Mupirocin Calcium [Bactroban Nasal*] 1 appl ACE BID #15 gm 08/18/23 New Medications: Mupirocin Calcium [Bactroban Nasal*] 1 appl ACE BID #15 gm Physician Discharge Instructions: Mr. Ni did well over the course of his admission. Ureteral and renal stones were placed by Dr. Saini. Secondary to the increased risk for renal disease he was seen by Dr. Bee. He received IV antibiotics, IV iron, and a unit of blood over the course of his admission. He will be discharged to follow-up with Dr. Saini and Dr. Bee on IV Merrem 1g twice daily x 3 weeks via PICC line. Home health has been arranged to help with IV therapy. Okay to DC IV and DC home Follow-up with primary care provider in 1 to 2 weeks Follow-up with Dr. Saini and Dr. Bee in 1 to 2-weeks Please call the inpatient unit for any questions or concerns regarding hospital stay Return to the ER for worsening symptoms [facility] P:[phone] F:[phone] Merrem 1 gm BID x 21 days via PICC Follow up with Dr. Saini in 1 week Follow up with Dr. Bee in 1-2 weeks [facility]-[address] [place] [address] [address], [place] [address] P/ [place]: [phone] F Jenelle Lo to follow for the antibiotics. Followup: Jenelle Lo NP [Primary Care Provider] - Damir Bee DO [ACTIVE - CAN ADMIT] - Aakash Saini [ACTIVE - CAN ADMIT] -
--- NOTE | 2023-08-18 22:17 | RAD REPORT ---
EXAM DESCRIPTION: RAD - Chest Single View - 08/18/2023 9:39 pm CLINICAL HISTORY: Device placement PICC line placement IMPRESSION: PICC line with its tip in the superior vena cava
[2023-08-18 23:01] VITALS: O2SAT 98
[2023-08-19 10:19] VITALS: TEMP 97.6
[2023-08-19 12:46] VITALS: BP 152/79
== END 2023-08-19 12:20 | disposition home health service (06) | DRG 660 ==
LOC: ER 09:38 → ERHOLD 14:35 → 2ND 17:20
PROVIDERS: ADMIT Hospitalist; ATTEND Hospitalist
PROC: BT1F1ZZ Fluoroscopy of Left Kidney, Ureter and Bladder using Low Osmolar Contrast (ICD-10-PCS; 2023-08-15)
PROC: 0T778DZ Dilation of Left Ureter with Intraluminal Device, Via Natural or Artificial Opening Endoscopic (ICD-10-PCS; principal; 2023-08-15 14:30)
PROC: 30233N1 Transfusion of Nonautologous Red Blood Cells into Peripheral Vein, Percutaneous Approach (ICD-10-PCS; 2023-08-16)
PROC: 0T9B70Z Drainage of Bladder with Drainage Device, Via Natural or Artificial Opening (ICD-10-PCS; 2023-08-18)
PROC: 02HV33Z Insertion of Infusion Device into Superior Vena Cava, Percutaneous Approach (ICD-10-PCS; 2023-08-18)
DX: N10 Acute pyelonephritis (principal); D76.3 Other histiocytosis syndromes; F84.0 Autistic disorder; E87.1 Hypo-osmolality and hyponatremia; N17.9 Acute kidney failure, unspecified; F31.9 Bipolar disorder, unspecified; I12.9 Hypertensive chronic kidney disease with stage 1 through stage 4 chronic kidney disease, or unspecified chronic kidney disease; N18.2 Chronic kidney disease, stage 2 (mild); E11.22 Type 2 diabetes mellitus with diabetic chronic kidney disease; E11.40 Type 2 diabetes mellitus with diabetic neuropathy, unspecified; D63.1 Anemia in chronic kidney disease; D50.9 Iron deficiency anemia, unspecified; D69.6 Thrombocytopenia, unspecified; F90.9 Attention-deficit hyperactivity disorder, unspecified type; E88.09 Other disorders of plasma-protein metabolism, not elsewhere classified; E78.00 Pure hypercholesterolemia, unspecified; D72.829 Elevated white blood cell count, unspecified; E66.01 Morbid (severe) obesity due to excess calories; Z60.2 Problems related to living alone; Z88.8 Allergy status to other drugs, medicaments and biological substances; Z68.30 Body mass index [BMI] 30.0-30.9, adult; Z79.84 Long term (current) use of oral hypoglycemic drugs; Z90.49 Acquired absence of other specified parts of digestive tract; Z87.891 Personal history of nicotine dependence; Z79.899 Other long term (current) drug therapy
CPT/HCPCS: 36415; 51610; 70450; 71045; 74177; 74450; 80053; 80061; 81001; 81003; 82565; 82728; 82947; 83036; 83540; 83690; 83735; 83930; 84100; 84443; 84550; 85025; 85044; 85610; 85730; 86140; 86850; 86900; 86901; 86920; 87040; 87086; 87088; 96361; 96365; 96375; 99285; J1200; J1644; J2001; J2185; J2250; J2405; J2704; J2765; J2916; J3010; J7030; J7050; J7120; P9016; Q9967